=== PATIENT | female | born 1935 | race Caucasian/White ===

== ENCOUNTER 2016-05-26 10:31 | Inpatient (IN) | payer MEDICARE ==
[2016-05-26] VITALS (9 sets, daily range): BP systolic 155–202; BP diastolic 53–83; PULSE 75–85; RESP 10–18; O2SAT 96–99
[~2016-05-26] VITALS: Ht 165.1 cm; Wt 64.2 kg
[~2016-05-26 10:31] MED LIST: ASPI-973 PO; CALC-190 PO; CHOL100045 PO; Excedrin PO; LAMO200T2 PO; MULT-1018 PO; PANT40SU PO; PRE625 PO; VENL75CA95 PO
--- NOTE | 2016-05-26 10:47 | ED.REPORT ---
HPI-Trauma Minor / Fall Date of Service May 26, 2016 ED Provider: Riley Barry MD This is an 81 year old female with a history of GERD, bipolar disorder, depression presenting to the emergency department via EMS due to fall that occurred just prior to arrival. Pt states she fell out of bed and and reports headache and neck pain, but otherwise denies any injuries. Denies LOC. Pt lives alone, neighbor reports confusion and states, "she is not acting herself." Denies nausea, vomiting, dizziness, lightheadedness, abdominal pain, constipation, or diarrhea. En route blood sugar 194. A friend present in the room adds that pt had a fall one week ago and was evaluated at that time with negative CT head. Friend adds that she appears confused and weak which is abnormal from baseline, pt is normally highly functional. Nursing Notes Stated Complaint: GLF Chief Complaint: General Complaint Nursing Notes Reviewed: Yes Allergies: Coded Allergies: citalopram (Verified Allergy, Unknown, 05/26/16) paroxetine (Verified Allergy, Unknown, 05/26/16) ciprofloxacin (Verified Adverse Reaction, Mild, diarrhea, 05/26/16) lansoprazole (Verified Adverse Reaction, Mild, intolerance, 05/26/16) Scheduled Aspirin (Aspirin) 81 Mg Tablet 81 MG PO DAILY Calcium Carbonate/Vitamin D3 (Calcium 500 mg Chewable Tablet) 1 Each Tab.chew 3 EACH PO DAILY Cholecalciferol (Vitamin D3) (Vitamin D) 1,000 Unit Capsule 1,000 UNIT PO DAILY Estrogens Conjugated (Premarin) 0.625 Mg Tablet 0.625 MG PO DAILY Lamotrigine (Lamotrigine) 200 Mg Tablet 200 MG PO DAILY Multivitamin (Multi Vitamin Daily) 1 Each Tablet 1 EACH PO DAILY Pantoprazole DR (Pantoprazole DR) 40 Mg Tablet.dr 40 MG PO BID Venlafaxine ER (Venlafaxine ER) 75 Mg Cap.er.24h 75 MG PO BID Vitamin E (Dl,Tocopheryl Acet) (Vitamin E) 100 Unit Capsule Unknown Dose PO DAILY Scheduled PRN Aspirin/Acetaminophen/Caffeine (Extra Pain Relief Caplet) 250 Mg-250 Mg-65 Mg Tablet 1 EACH PO DIRECTED PRN PRN For Pain General Time Seen by MD: 10:46 Chief Complaint Fall Hx Obtained From: Patient Arrived By: Ambulance Onset Occurred: Just prior to arrival Symptom Duration: Since onset Severity: Current: Mild Pertinent Negative: Pt denies other symptoms Recent Healthcare: No recent doctor visit, No recent hospitalization Similar Sx Previous: No Risk Factors Head CT Imaging Patient Presents WITHOUT: Loss of Conciousness Ernie Coma Score > Age 5 Ernie Coma Score: 13 Past Medical History Past Medical History GERD Bipolar Disorder Major Depression HIatial Hernia Ambulatory Status Independent Review of Systems Constitutional: Denies: Chills, Fever Respiratory: Denies: Non-productive cough, Shortness of breath Musculoskeletal: Reports: Neck pain, Denies: Back pain, Extremity pain, Extremity swelling Neurologic: Reports: Confusion, Headache, Denies: Change LOC, Dizziness, Lightheaded Complete sys rev & neg: except as marked. Physical Exam Initial Vital Signs Vital Signs (First) Date Time Temp Pulse Resp B/P Pulse Ox O2 Delivery O2 Flow Rate FiO2 05/26/16 10:59 36.6 75 16 188/53 99 Room Air - Initial VS: Reviewed Head / Eyes: Atraumatic, Normocephalic, PERRL ENT: Mucous membranes moist, Conjunctiva normal, No scleral icterus Respiratory: Breath sounds normal, Clear to auscultation, No respiratory distress Cardiovascular: Regular rate & rhythm, Heart sounds normal, Intact distal pulses Abdomen / GI: Soft, Non-tender, No guarding, No rebound, No distention Extremities: Vascular intact, Neuro intact, No swelling, No tenderness Skin: Warm, Dry, No cyanosis Psychiatric: Mood/affect normal, Behavior normal, Normal thought content General/Constitutional: Awake, Alert Neck: Full range of motion Cervical tenderness Neurologic: No motor deficits, No sensory deficits, CN II - XII intact Slurred speech, GCS 13 Interpretation & Diagnostics BRAIN CT IMPRESSION: 1. Subacute versus chronic right globus pallidus lacunar infarct. 2. Chronic left globus pallidus lacunar infarct. 3. Mild, diffuse volume loss. 4. Severe periventricular and subcortical white matter chronic microvascular ischemic changes. 5. No intracranial hemorrhage. Dictated by: Dinorah Thomas MD, PhD on 05/26/2016 at 13:35 Approved by: Dinorah Thomas MD, PhD on 05/26/2016 at 13:[address] C-[address] IMPRESSION: No fracture. No acute osseous lesion. If symptoms and/or clinical suspicion for pathology persists, evaluation with MRI may be helpful for further assessment. Dictated by: Dinorah Thomas MD, PhD on 05/26/2016 at 13:59 Approved by: Dinorah Thomas MD, PhD on 05/26/2016 at 14:05 CT ABD PELVIS IMPRESSION: 1. No acute disease process. 2. Cholelithiasis. 3. Colonic diverticulosis without evidence of diverticulitis. 4. Atherosclerosis. 5. Moderate-sized hiatal hernia. Dictated by: Dinorah Thomas MD, PhD on 05/26/2016 at 13:50 Approved by: Dinorah Thomas MD, PhD on 05/26/2016 at 13:58 Lab Results Interpretation Result Diagram: 05/26/16 1110 05/26/16 1110 Test 05/26/16 11:10 05/26/16 12:07 White Blood Count 9.0th/mm3 (3.8-10.1) Red Blood Count 4.25mil/mm3 (3.90-5.20) Hemoglobin 13.0g/dL (12.0-15.6) Hematocrit 39.2% (35.0-46.0) Mean Corpuscular Volume 92.2fL (81-100) Mean Corpuscular Hemoglobin 30.6pg (27.0-35.0) Mean Corpuscular Hemoglobin Concent 33.2% (32.0-37.0) Red Cell Distribution Width 14.4% (12.3-15.4) Platelet Count 272bil/L (150-400) Neutrophils (%) (Auto) 72.9% (40-74) Lymphocytes (%) (Auto) 18.4% (14-46) Monocytes (%) (Auto) 6.2% (4-12) Eosinophils (%) (Auto) 2.0% (0-5) Basophils (%) (Auto) 0.2% (0-3) Prothrombin Time 10.5sec (8.1-12.5) Prothromb Time International Ratio 0.98ratio Sodium Level 140mEq/L (134-144) Potassium Level 4.0mEq/L (3.5-5.2) Chloride Level 102mEq/L (97-108) Carbon Dioxide Level 27mmol/L (18-29) Blood Urea Nitrogen 22mg/dL (8-27) Creatinine 0.62mg/dL (0.57-1.00) Estimat Glomerular Filtration Rate 132mL/min (>59) Glucose Level 95mg/dL (60-99) Calcium Level 8.4mg/dL (8.5-10.1) Magnesium Level 2.1mg/dL (1.6-2.6) Total Bilirubin 0.4mg/dL (0.0-1.2) Aspartate Amino Transf (AST/SGOT) 31U/L (0-50) Alanine Aminotransferase (ALT/SGPT) 19U/L (0-32) Alkaline Phosphatase 72U/L (25-165) Troponin T 0.010ug/L (0.0-0.011) Total Protein 6.4g/dL (6.4-8.4) Albumin 3.8g/dL (3.4-5.0) Hold Birch Top Tube Received (Received) Alcohol, Quantitative < 10mg/dL (0-10) Urine Color Straw (YELLOW) Urine Appearance Hazy (CLEAR,HAZY) Urine pH 6.5 (5.0-8.0) Urine Specific Marshall 1.015 (1.003-1.035) Urine Protein Negativemg/dL (NEG,TRACE) Urine Glucose (UA) Negativemg/dL (NEGATIVE) Urine Ketones Tracemg/dL (NEGATIVE) Urine Occult Blood Negative (NEGATIVE) Urine Nitrite Negative (NEGATIVE) Urine Bilirubin Negative (NEGATIVE) Urine Urobilinogen Normalmg/dL (NORMAL) Urine Leukocyte Esterase Negative (NEGATIVE) Urine RBC 0-2/hpf (0-2) Urine WBC 0-5/hpf (0-5) Urine Epithelial Cells Occasional/hpf (NONE-MOD) Urine Crystals None seen (NONE SEEN) Urine Bacteria None/hpf (NONE-FEW) Urine Hyaline Casts None/lpf (NONE) Urine Granular Casts None seen (NONE SEEN) Urine Waxy Casts None seen (NONE SEEN) Urine Red Blood Cell Casts None seen (NONE SEEN) Urine White Blood Cell Casts None seen (NONE SEEN) Urine Mucus None seen (None Seen) Urine Trichomonas None seen (NONE SEEN) Urine Yeast None (NONE SEEN) Urinalysis Comment None Urine Culture Reflexed Not indicated ECG Interpretation ECG Interpretation: NSR at a rate of [address] elevation Time: 11:36 Interpreted by: ED physician X-Ray Chest Interpretation Chest Xray Interpretation: IMPRESSION: No acute cardiopulmonary disease process. Dictated by: Dinorah Thomas MD, PhD on 05/26/2016 at 12:26 Approved by: Dinorah Thomas MD, PhD on 05/26/2016 at 12:26 Re-Eval/Medical Decision Med Decision/Clinical Course 81-year-old female history of depression and bipolar presenting with altered mental status. Patient was found by friends today altered. She was reportedly normal several days ago. Normally alert and interactive. She had a recent fall one week ago was taken outside hospital with normal CT brain per friend. On arrival GCS 13. She is very somnolent. CT brain shows subacute versus chronic globus pallidus infarct. Discussed with neurology Dr. Osullivan who recommends admission for MRI and stroke workup. Recommended starting aspirin which I gave. We will admit to hospital for CVA, Altered mental status. Re-Evaluation/Progress #1: Time of Eval: 12:34 Re-Evaluation/Progress Note: Discussed pt care with friend now present in the room, plan for admission Re-Evaluation/Progress #2: Time of Eval: 13:54 Consultation #1: Referral / Consult Name: Tomas Montgomery MD Consulted With: Neurology Call Returned at: 13:58 Cassandra Consultant: Agrees with eval, Agrees with plan Note: Recommends ASA and admission Consultation #2: Referral / Consult Name: Reuben Greene MD Consulted With: Hospitalist Call Returned at: 14:38 Cassandra Consultant: Accepts admit Counseled Regarding: Diagnosis, Lab results, Need for follow-up, Need for admission Discharge & Departure Impression: Primary Impression: CVA (cerebral vascular accident) CVA mechanism: unspecified Qualified Code: I63.9 - Cerebral infarction, unspecified Additional Impression: Altered mental status Altered mental status type: unspecified Qualified Code: R41.82 - Altered mental status, unspecified Disposition: ADMITTED TO HOSPITAL Discharge Condition All VS Reviewed: Yes Condition: Stable Referrals: Flako Amador MD (PCP) Crit Care Except Billable Proc Time Spent: 30-74 minutes Services Performed: Patient management by me, Time spent at bedside, Reviewing test results, Reviewing imaging, Discussing patient care, Documentation in record Scribe Attestation Portions of this note were transcribed by Faviola Sims. I, Dr. Barry personally performed the history, physical exam and medical decision-making; I reviewed and confirmed the accuracy of the information in the transcribed note. Signed by: eun Ferrell. 05/26/2016, 15:00. Riley Barry MD May 26, 2016 10:47 FAVIOLA SIMS May 26, 2016 10:58
[2016-05-26 11:20] LABS: BASOPHILS % (AUTO) 0.2 % (0-3); MONOCYTES % (AUTO) 6.2 % (4-12); Mean Corpuscular Hemoglobin 30.6 pg (27.0-35.0); Mean Corpuscular Volume 92.2 fL (81-100); NEUTROPHILS % (AUTO) 72.9 % (40-74); Platelet Count 272 bil/L (150-400)
[2016-05-26 11:45] LABS: TROPONIN T 0.01 ug/L (0.0-0.011)
[2016-05-26 11:56] LABS: Magnesium 2.1 mg/dL (1.6-2.6)
[2016-05-26 12:20] LABS: APPEARANCE,URINE HAZY (CLEAR,HAZY); COLOR,URINE STRAW (YELLOW); OCCULT BLOOD,URINE NEGATIVE (NEGATIVE); PH,URINE 6.5 (5.0-8.0); UROBILINOGEN,URINE NORMAL (NORMAL)
--- NOTE | 2016-05-26 12:54 | DRSVH ---
PROCEDURE: X-RAY CHEST ONE VIEW, PORTABLE ([id number]) INDICATIONS: weakness, multiple falls TECHNIQUE: One view of the chest was acquired. COMPARISON: None. FINDINGS: Surgical changes and devices: None. Lungs and pleura: No pleural effusions or pneumothorax. Lungs are clear. Mediastinum: Mediastinal contours appear normal. Heart size is normal. Bones and chest wall: No suspicious bony lesions. Overlying soft tissues appear unremarkable. IMPRESSION: No acute cardiopulmonary disease process. Dictated by: Dinorah Thomas MD, PhD on 05/26/2016 at 12:26 Approved by: Dinorah Thomas MD, PhD on 05/26/2016 at 12:26
--- NOTE | 2016-05-26 13:40 | DRSVH ---
PROCEDURE: CT BRAIN WITHOUT CONTRAST ([id number]) INDICATIONS: altered mental status ? trauma? TECHNIQUE: Noncontrast 4.5 mm thick angled axial sections acquired from the foramen magnum to the vertex, with c oronal reformats. COMPARISON: None. FINDINGS: Image quality: Excellent. CSF spaces: Basal cisterns are patent. No extra-axial fluid collections. The ventricles are symmet jose a in size and shape. Brain: No intracranial bleeds or masses. There is cerebral volume loss for age, with resultant vent ricular and sulcal prominence. There are severe periventricular and deep white matter chronic small vessel ischemic changes. Chronic lacunar infarct as well as left globus pallidus noted. Hypoattenuati ng lesion noted in the right globus pallidus may represent subacute or chronic infarct. There is intr acranial internal carotid artery and vertebral artery atherosclerosis. Skull and face: Calvarium and visualized facial bones appear intact, without suspicious lesions. Sinuses: Visualized sinuses and mastoids are clear. IMPRESSION: 1. Subacute versus chronic right globus pallidus lacunar infarct. 2. Chronic left globus pallidus lacunar infarct. 3. Mild, diffuse volume loss. 4. Severe periventricular and subcortical white matter chronic microvascular ischemic changes. 5. No intracranial hemorrhage. Dictated by: Dinorah Thomas MD, PhD on 05/26/2016 at 13:35 Approved by: Dinorah Thomas MD, PhD on 05/26/2016 at 13:39
--- NOTE | 2016-05-26 14:01 | DRSVH ---
PROCEDURE: CT ABDOMEN AND PELVIS WITH CONTRAST TRAUMA ([id number] [id number]) INDICATIONS: abd pain trauma TECHNIQUE: After the administration of intravenous contrast, 5 mm thick sections acquired from the diaphragms to the symphysis. 5 mm thick coronal and sagittal reformats were acquired. Optional 10-minute delayed imaging may be performed from the kidneys to the bladder. For radiation dose reduction, the followi ng was used: automated exposure control, adjustment of mA and/or kV according to patient size. COMPARISON: [facility], CT, ABD/PELVIS W/CON (PN), 01/12/2011, 16:46. FINDINGS: Image quality: Excellent. ABDOMEN: Lung bases: Lung bases are clear. Heart size is normal. No pericardial effusion. Inferior ribs ar e intact. No basal pleural effusions or pneumothorax. Solid organs: Liver and spleen are normal in size and enhancement, without lacerations. Gallbladder contains gallstones. Biliary system is non-dilated. Pancreas enhances normally, without transectio n. No adrenal hematomas. Both kidneys enhance normally, without hydronephrosis or lacerations. Peritoneum and bowel: Hiatal hernia is noted. No free fluid or air. Unenhanced bowel loops demonstr ate normal wall thickness and caliber. Scattered diverticuli noted in the colon without evidence of d iverticulitis. Nodes and vessels: No retroperitoneal or mesenteric adenopathy. Aorta and inferior vena cava are no rmal in size and enhancement. Scattered atherosclerotic calcifications noted in the abdominal and pel gabe vasculature. Miscellaneous: No ventral hernias. PELVIS: Genitourinary: Bladder wall thickness is normal. Miscellaneous: No inguinal hernias or adenopathy. Injection granuloma is noted in the right buttock. Bones: Pelvic ring and hip joints appear intact. No vertebral compression fractures. Multilevel deg enerative disc disease. Severe convex left lumbar spine scoliosis. IMPRESSION: 1. No acute disease process. 2. Cholelithiasis. 3. Colonic diverticulosis without evidence of diverticulitis. 4. Atherosclerosis. 5. Moderate-sized hiatal hernia. Dictated by: Dinorah Thomas MD, PhD on 05/26/2016 at 13:50 Approved by: Dinorah Thomas MD, PhD on 05/26/2016 at 13:58
--- NOTE | 2016-05-26 14:06 | DRSVH ---
PROCEDURE: CT CERVICAL SPINE WITHOUT CONTRAST ([id number]) INDICATIONS: trauma c-spine tenderness TECHNIQUE: Noncontrast 3 mm thick sections acquired from the skull base to the T4 level. Sagittal and coronal r eformats were then constructed. For radiation dose reduction, the following was used: automated exp osure control, adjustment of mA and/or kV according to patient size. COMPARISON: None. FINDINGS: Image quality: Excellent. Bones: No fractures or dislocations. Visualized superior ribs are intact. Multilevel degenerative d isc disease and facet arthropathy are noted. Soft tissues: Prevertebral soft tissues are normal in thickness. No paravertebral hematomas. No ap ical pneumothoraces. IMPRESSION: No fracture. No acute osseous lesion. If symptoms and/or clinical suspicion for patholog y persists, evaluation with MRI may be helpful for further assessment. Dictated by: Dinorah Thomas MD, PhD on 05/26/2016 at 13:59 Approved by: Dinorah Thomas MD, PhD on 05/26/2016 at 14:05
[2016-05-26] MEDS ORDERED: Alum-Mag Hydrox-Simeth 30 mL Suspension PO PRN (14:50)
[2016-05-26] MEDS ORDERED: Ondansetron 2 mg/mL 2 mL Inj IVPUSH PRN (14:50)
[2016-05-26] MEDS ORDERED: Labetalol 5 mg/mL 4 mL Inj IVPUSH PRN (14:55)
[2016-05-26] MEDS ORDERED: HYDROcodone-APAP 5-325 mg Tablet PO PRN (14:55)
[2016-05-26] MEDS ORDERED: Polyethylene Glycol (PEG) 17 Gm Powder PO PRN (14:55)
--- NOTE | 2016-05-26 15:17 | NUR ---
Evaluation completed. Please go to "Notes" then click on "Assessments and Notes" (bottom left corner of screen). Then select appropriate discipline tab on top of screen.
[2016-05-26 15:28] LABS: INR 0.98 ratio
[2016-05-26] MEDS ORDERED: [UNRECOGNIZED DRUG - CODE] PO (16:23)
[2016-05-26] MEDS ORDERED: CALC-952 PO (16:25)
[2016-05-26] MEDS ORDERED: PANT40TA3 PO (16:25)
[2016-05-26] MEDS ORDERED: PRE625 PO (16:25)
[2016-05-26] MEDS ORDERED: VITA100C22 PO (16:26)
--- NOTE | 2016-05-26 17:17 | NUR ---
Admit nurse note Partial admission assessment completed in ER based on pt. recall and PCP H&P. PT. is crying, saying she misses her who recently . [employer] contacted to visit with pt. per pt request. Primary RN states she notified DPOA son Lacho. Allergy sticker placed by primary RN and fall precautions initiated upon arrival to unit. Report given to Pat Dowling.
--- NOTE | 2016-05-26 17:20 | NUR ---
Admit Pt comes from ER via bed. IV Left AC. Brief on incontinent. Left sides slight weakness. Pt c/o right eye vision changes X 2 days, neck pain, and bilateral big toe nail removal previously. Pt fatigued but alert and oriented X 4. Slow to respond and at times states the incorrect answers then the correct ones. Mumbles most times as well. Left arm drift and unable to extend straight out front as her right arm is able too. Gnosticist friends at bedside able to provide family phone numbers which were written on board. If pt is in need of sitter Javid has states that she will come in and to call her at any time! Care continues.
--- NOTE | 2016-05-26 17:58 | PCM.HPMED ---
Subjective Date of Service May 26, 2016 Primary Provider: Admitting Physician: Reuben Greene MD Primary Care Physician: Flako Amador MD Attending Physician: Reuben Greene MD Chief Complaint: Altered level of consciousness History of Present Illness: 81 year old female with a history of GERD, bipolar disorder, depression presenting to the emergency department via EMS due to fall that occurred just prior to arrival. Pt states she fell out of bed and and reports headache and neck pain, but otherwise denies any injuries. Denies LOC. Pt lives alone, neighbor reports confusion and states, "she is not acting herself." Denies nausea, vomiting, dizziness, lightheadedness, abdominal pain, constipation, or diarrhea. En route blood sugar 194. A friend present in the room adds that pt had a fall one week ago and was evaluated at that time with negative CT head. Friend adds that she appears confused and weak which is abnormal from baseline, pt is normally highly functional. Patient is improving but still probably not mentating perfectly normally. Her neighbor is present when I am interviewing her and states that she speaking basically normally for herself however seems to me that she has problems maintaining attention with me some difficulty following even simple commands. She fell about 2 weeks ago and a broke a closet door hitting her right eye the bruise is almost resolved, she fell out of bed this morning and used her life alert to call 911. She is unable to tell me really that there was anything the matter prior to this. Her neighbor tells me that she had her 's picture out he passed in December 2015 and she may be particularly depressed at this time. Review of Systems: When queried the patient states "no" but maintaining her attention for the series of questions is challenging at best Gen.: No fevers chills weight loss weight gain Eyes: no visual disturbances or blurring vision HEENT: No nose/throat drainage, no pain in ears or throat, no hearing loss Lymph: No lymph nodes noted Cardiac: No chest pain, orthopnea, PND, palpitations , pedal edema or dyspnea on exertion Pulmonary: no cough, wheezing or bringing up of sputum GI: No anorexia nausea vomiting blood or black in the stool : no dysuria hematuria urinary frequency or decrease in urine output Musculoskeletal: Joint swelling no joint pain no new muscle aches or back pain Neuro: No syncope, seizures no loss of consciousness no new focal weakness, numbness or tingling Psychiatric: New new anxiety insomnia or depression Endocrine: No new heat or cold intolerances polyuria or polydipsia Hematology: No lymphadenopathy or easy bleeding or bruising noted skin: No new rashes, stasis dermatitis Allergies Coded Allergies: citalopram (Verified Allergy, Unknown, 05/26/16) paroxetine (Verified Allergy, Unknown, 05/26/16) ciprofloxacin (Verified Adverse Reaction, Mild, diarrhea, 05/26/16) lansoprazole (Verified Adverse Reaction, Mild, intolerance, 05/26/16) Home Medications Scheduled Aspirin (Aspirin) 81 Mg Tablet 81 MG PO DAILY Calcium Carb&Cit/Mag12/Vit D3 (Calcium 500 mg Tablet) 1 Each Tablet 3 EACH PO DAILY Cholecalciferol (Vitamin D3) (Vitamin D) 1,000 Unit Capsule 1,000 UNIT PO DAILY Estrogens Conj-Expunged Drug, Do Not Renew! (Premarin-Expunged Drug, Do Not Renew!) 0.625 Mg Tab 0.625 MG PO AM Lamotrigine (Lamotrigine) 200 Mg Tablet 200 MG PO DAILY Multivitamin (Multi Vitamin Daily) 1 Each Tablet 1 EACH PO DAILY Pantoprazole-Expunged Drug, Do Not Renew! (Protonix-Expunged Drug, Do Not Renew! ) 40 Mg/Blist Pack Suspdr.pkt 40 MG PO DAILY Venlafaxine ER (Venlafaxine ER) 75 Mg Cap.er.24h 75 MG PO BID Scheduled PRN ([Excedrin]) 1 TAB PO DAILY PRN PRN For Pain PMH GERD Bipolar Disorder Major Depression HIatial Hernia PAST SURGICAL HISTORY: 1. Appendectomy. 2. Hysterectomy. 3. Thyroidectomy. 4. Parathyroidectomy. 5. Previous cystoscopy. 6. Left ureteral stent placement. SOCIAL HISTORY: She is to , Geraldo who December 2015. Nonsmoker, non-alcohol consumer. Ambulatory Status Independent Family history no known history of early heart disease or cancer Social History Hx Alcohol Use: No Hx Substance Use: No Hx Tobacco Use: No Smoking Status: Never Smoker Exam Vital Signs Vital Sign - Last Date Time Temp Pulse Resp B/P Pulse Ox O2 Delivery O2 Flow Rate FiO2 05/26/16 16:28 77 16 175/76 93 Room Air 05/26/16 10:59 36.6 Exam Gen.- A+ O 2-3, no apparent distress. Lying in bed intermittently following commands. Reportedly doing much better than she was in the emergency room or even on transfer to the floor. Eyes- open conjunctiva clear, pupils equal nonicteric. She has a right favoring gaze, but extraocular muscles seem to be mostly intact Mouth- oral mucosa moist, no exudate ENT- ears normal, nose normal Neck- supple/trach midline CVS- RRR no murmur or gallop Lungs- CTA GI- NABS/NT soft Musc- moving 4 no obvious deformity Neuro- cranial nerves II through XII intact to gross examination, patient has facial asymmetry but cranial nerves seem to be overall intact, her speech is quiet but her neighbor tells me this is chronic and it also seems a bit slurred , she has difficulty moving her left arm but it is not clear at the chronicity and she is also having difficulty doing heel pendleton but that is bilaterally symmetric. She has 5 out of 5 strength both upper extremities, 4 out of 5 strength in her left leg versus 5 out of 5 in the right Skin- warm and dry, no rashes/lesions/wounds noted Psych-seems withdrawn, sullen, needs constant stimulation to maintain attention and redirection, Lab and Diagnostics Labs Normal LFTs, normal troponin, urine clear Result Diagram: 05/26/16 1110 05/26/16 1110 X-Rays, CTs and MRIs CT brain 1. Subacute versus chronic right globus pallidus lacunar infarct. 2. Chronic left globus pallidus lacunar infarct. 3. Mild, diffuse volume loss. 4. Severe periventricular and subcortical white matter chronic microvascular ischemic changes. 5. No intracranial hemorrhage. Dictated by: Dinorah Thomas MD, PhD on 05/26/2016 at 13:35 CT abdomen and pelvis 1. No acute disease process. 2. Cholelithiasis. 3. Colonic diverticulosis without evidence of diverticulitis. 4. Atherosclerosis. 5. Moderate-sized hiatal hernia. Dictated by: Dinorah Thomas MD, PhD on 05/26/2016 at 13:50 CT C-spine No fracture. No acute osseous lesion. If symptoms and/or clinical suspicion for pathology persists, evaluation with MRI may be helpful for further assessment. Normal CXR 12-lead ECG . Sinus rhythm 72 QRS 472ms . Left anterior fascicular block . Low voltage, precordial leads . Left ventricular hypertrophy . Anterior Q waves, possibly due to LVH . No previous ECG available for comparison Assessment & Plan 81-year-old female lives alone came in with altered level of consciousness, at this point in time it is pretty clear she will need placement unless she recovers. Her children live in [place] and her neighbors do look after her one is at the bedside and one across the way is a nurse. He has a good supportive environment. 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 Her neighbor left me the impression that she was pretty near to baseline however I find that hard to believe. Reuben Greene MD May 26, 2016 17:57
--- NOTE | 2016-05-26 18:27 | NUR ---
spiritual care: nurse referral conversational/caring visit. friend from [facility] [place] at bedside, supportive. no family near. Pt grew tearful as she talked of 's (in past year) and expressed overwhelm at medical events. awaiting mri and more medical news.
[2016-05-26] MEDS ORDERED: ACETAMINOPHEN PO PRN (19:05)
[2016-05-26] MEDS ORDERED: CAFFEINE PO PRN (19:05)
[2016-05-26] MEDS ORDERED: ASPIRIN PO PRN (19:05)
[2016-05-26] MEDS ORDERED: [UNRECOGNIZED DRUG - OTHER] PO PRN (19:05)
--- NOTE | 2016-05-26 20:14 | DRSVH ---
PROCEDURE: MRI BRAIN WITHOUT CONTRAST ([id number]) INDICATIONS: CVA Uncertain Acuity TECHNIQUE: Non-contrast axial T1 spin echo, axial T2 fast spin echo, sagittal and axial FLAIR, coronal T2 fast s pin echo, axial gradient echo, axial diffusion and ADC through the brain. COMPARISON: None. FINDINGS: Image quality: Excellent. CSF spaces: Ventricles appear symmetric in shape. Fluid spaces are mildly enlarged from atrophic pili nge. Basal cisterns are patent. No extra-axial fluid collections. Brain: No intracranial bleeds or mass effects. There is an acute disc subacute infarct in the region of the right basal ganglia. There is an old lacunar infarct in the left basal ganglia. There is cere bral volume loss for age. There are moderate periventricular and deep white matter chronic small ves serjio ischemic changes. Brainstem appears normal. Diffusion-weighted images show no acute ischemic in sults. No chronic ischemic insults. Normal intravascular flow voids are present. Skull and face: Calvarial bone marrow is normal in signal. Orbits are normal. Sinuses: Sinuses and mastoids are clear. IMPRESSION: Acute to subacute ischemic infarcts involving the right basal ganglia area. Old lacune in the left. Moderate microvascular ischemic change from aging and mild atrophy. Dictated by: Jose Ramon Nogueira M.D. on 05/26/2016 at 20:10 Approved by: Jose Ramon Nogueira M.D. on 05/26/2016 at 20:13
[2016-05-26] MEDS: Venlafaxine XR 75 mg ER24 Capsule PO SCH (20:30)
[2016-05-26] MEDS: Pantoprazole 40 mg ER24 Tablet PO SCH ×2 (20:30→22:04)
[2016-05-26] MEDS: 0.9% Sodium Chloride 1,000 ML IV SCH (22:04)
[2016-05-27] MEDS: 0.9% Sodium Chloride 1,000 ML IV SCH ×2 (03:25→15:55)
[2016-05-27 05:08] VITALS: BP 189/87; PULSE 83; RESP 16; O2SAT 96
--- NOTE | 2016-05-27 05:59 | NUR ---
activity pt is slow to respond to questions but did answer all questions appropriately this shift. able to hold both arms out but left arm drifts towards center of chest. L foot plantar/dorsiflexion is weaker then R. pt makes some depressive statements. when nurse asked her to smile she said "that's hard because there's nothing to smile about". pt passive. when not being interactive with she has just slept or laid with very little movement. staff doing q2 turns and skin checks. pt incontinent and wearing a brief. she has not been telling staff when she has to go to the bathroom or asking to get up at all. will continue to monitor.
[2016-05-27 08:00] VITALS: PULSE 92
[2016-05-27] MEDS: Calcium Carbonate (Oyster Shell) 500 mg Tablet PO SCH ×3 (08:00→17:30)
[2016-05-27] MEDS ORDERED: Non-Formulary Medication (Cholecalciferol (Vitamin D3) (Vitamin D) 1,000 UNIT) PO SCH (08:30)
[2016-05-27] MEDS ORDERED: lamoTRIgine 100 mg Tablet PO SCH (08:30)
[2016-05-27] MEDS ORDERED: Non-Formulary Medication (Multivitamin (Multi Vitamin Daily) 1 EACH) PO SCH (08:30)
--- NOTE | 2016-05-27 08:46 | CONS ---
[address] [address] CONSULTATION REPORT PATIENT: KEERTHI VILLAREAL : 1935 MR#: [id number] ADMIT: 05/26/2016 JOB ID: [id number] DATE OF SERVICE: 05/27/2016 CHIEF COMPLAINT: Change in mental status followed by a fall. REQUESTING PROVIDER: Dr. Riley Barry. HISTORY OF PRESENTING ILLNESS: The patient is an 81-year-old woman with a history of gastroesophageal reflux disease, bipolar disorder, and depression who reportedly was noted to have a change of mental status and a fall that occurred prior to arrival at the emergency department. She reports that she fell out of bed, and reported headache and neck pain. Otherwise denied any injuries. She lives alone and a neighbor reported confusion and noted that she did not appear to be in her normal mental status. Blood sugar was noted to be 134. Reportedly a friend present in the room added that the patient had a fall one week ago that was evaluated at the time with a negative head CT. The friends added that the patient appeared confused and weak, abnormal from baseline where the patient is normally highly functional. MEDICATIONS AT HOME: Include: 1. Aspirin 81 mg daily. 2. Calcium carbonate/vitamin-D3. 3. Estrogen conjugated. 4. Lamotrigine 200 mg daily. 5. Multivitamin. 6. Pantoprazole. 7. Venlafaxine. 8. Vitamin E. ALLERGIES: To CITALOPRAM, PAROXETINE, CIPROFLOXACIN, and LANSOPRAZOLE. PAST MEDICAL HISTORY: Gastroesophageal reflux disease, bipolar disorder, depression, hiatal hernia PAST SURGICAL HISTORY: Appendectomy, hysterectomy, thyroidectomy, parathyroidectomy, cystoscopy, left ureteral stent placement The patient was evaluated in the emergency department and a CT of the head was performed. It demonstrated a subacute versus chronic right globus pallidus lacunar infarct, chronic left globus pallidus lacunar infarct, mild diffuse volume loss, severe periventricular and subcortical white matter chronic microvascular ischemic changes with no intracranial hemorrhage. A CT cervical spine demonstrated no fracture. No acute osseous lesion and a CT of the abdomen and pelvis demonstrated no acute disease process, cholelithiasis, colonic diverticulosis without evidence of diverticulitis, atherosclerosis and a moderate sized hiatal hernia. WBC of 9.0, hemoglobin 13.0, hematocrit 39.2 with platelets of 272. Sodium 140, potassium was 4.0, chloride 102, bicarbonate 27, BUN was 22, creatinine was 0.62 and glucose of 95. UA was performed as well and was straw hazy with trace ketones, occasional urine epithelial cells, otherwise unremarkable. Chest x-ray: No acute cardiopulmonary disease process was noted. EKG demonstrated normal sinus rhythm at a rate of [address] elevation. Friends noted that the patient was noted to have altered mental status. Last seen normal several days ago. Normally alert and interactive. Reportedly had a fall one week ago. Was taken to an outside hospital with a normal CT of the head performed. On arrival, GCS was 13. She was noted to be very somnolent. She was admitted to the hospital. I reviewed her magnetic resonance imaging study of the brain which demonstrated an acute to subacute ischemic infarcts involving the right basal ganglia area and an old lacune in the left basal ganglia area, moderate microvascular ischemic changes likely from aging and mild atrophy. Today the patient was able to follow commands. However, did appear lethargic to me. No reported seizure activity. Her speech also appears slurred and there is a mild degree of difficulty moving the left arm and left leg which appeared mildly weak. I reviewed her EKG which demonstrated a left anterior fascicular block, low voltage in the precordial leads, left ventricular hypertrophy, anterior Q-waves possibly due to LVH. Reportedly her children live in [place] and her neighbors look after her. She has a nurse that lives in the area. This event occurred despite being on aspirin. It is unclear her degree of compliance. REVIEW OF SYSTEMS: A complete review of systems was performed and was remarkable for above-noted. PHYSICAL EXAMINATION: Vital signs: Temperature 37.0, pulse of 83, respiratory rate of 16, blood pressure 189/87, pulse oximetry 96% on room air. General: She is awake, alert and oriented x2. She did not know the date. She did follow commands. Her speech was dysarthric. However, there was no aphasia. Head: Normocephalic, atraumatic. Neck: Supple. No carotid bruits were auscultated. Negative Kernig. Negative Brudzinski. Chest clear to auscultation. Heart: Regular rate and rhythm. Abdomen: Soft, nondistended, nontender. Extremities: No cyanosis, clubbing or edema. NEUROLOGIC EXAMINATION: Mental status: She is awake, alert and oriented x2. She did not know the date. Her speech did appear to be dysarthric. However, there was no aphasia. Cranial nerves: Pupils equal, round and react to light. Extraocular movements did appear smooth and conjugate. However, there is a right gaze deviation noted. She blinks to threat bilaterally and there was mild flattening of the left nasolabial fold. Facial sensation was intact to light touch bilaterally. Auditory sensation was intact to finger rub bilaterally. Tongue was midline. Sternocleidomastoids and trapezii were 5/5 bilaterally. She did appear intermittently lethargic throughout the examination. Motor: Left upper extremity 5-/5. Left lower extremity 5/5. Sensation intact to light touch and temperature. Coordination was attempted. However, the patient appeared confused during this process and was unable to complete finger to nose bilaterally due to confusion and intermittent lethargy. Deep tendon reflexes were 1+ throughout, trace at the Achilles bilaterally. Plantars were silent bilaterally. Gait was deferred. IMPRESSION: 1. Cerebrovascular accident. 2. Right globus pallidus lacunar infarct. Likely secondary to patient's underlying stroke risk factors including hypertension. I do suspect underlying hyperlipidemia. She would benefit from a lipid risk profile if this has not already been ordered. I do not see it back yet today. However, it may have already been ordered. Her hemoglobin A1c was 5.6. I recommend a full stroke protocol. Plavix 75 mg daily. I do recommend a CTA of head and neck to be performed and an echocardiogram. I do recommend completion of stroke workup. I do recommend optimization of stroke risk factors. Thank you, again, for allowing me to participate in the care of your patient. Please feel free to contact me with any questions or concerns or Dr. Riley Barry. NIH stroke scale of 5, one for missing the date, one for facial asymmetry, one for a mild degree of drift in the left upper extremity, one for a mild degree of drift in the left lower extremity and one for a mild degree of dysarthria. ADDITIONAL INFORMATION: I came by and examined the patient again later today, and she was able to correctly state the date. She does appear lethargic, however, does not have classic features of akinetic mutism. There has been a mild degree of waxing and waning of her symptoms, and she was unable to pass her swallow evaluation today. There is consideration for possible tube feeding tomorrow. I did also review her imaging studies with her of the magnetic resonance angiogram of her brain and neck that demonstrated no acute intracranial disease process other than the evolving subacute right basal ganglia/internal capsule/best radiata infarcts, no intracranial hemorrhage, high-grade atherosclerotic stenosis involving the supraclinoid segments of the internal carotid arteries bilaterally and at the junction of the petrous and cavernous segments of the left internal carotid artery, multifocal high-grade atherosclerotic stenosis involving the intracranial right vertebral artery and basilar artery, high-grade greater than 70% stenosis at the origin of the right internal carotid artery, and severe high-grade stenosis of the origin of the left internal carotid artery. The left vertebral artery appears widely patent. In light of these findings, I do recommend an evaluation by Vascular Surgery for possible carotid endarterectomy versus stenting at the discretion of the vascular surgeon within the next two weeks. I do also recommend that the patient be placed on dual antiplatelet therapy for three months and then continued just on aspirin after three months. These recommendations are derived from the SAMMPRIS trial regarding intracranial stenosis that is symptomatic. However, in her case, I do suspect that the high-grade stenosis greater than 70% in the right internal carotid artery may be the etiology of her cerebrovascular accident of the right basal ganglia/internal capsule/best radiata infarcts. Other options for treatment given her cognition and apparent lethargy include amantadine and possibly even carbidopa/levodopa, although the patient does not have any tremor at this time. Thank you, again, for allowing me to participate in the care of your patient, Dr. Barry. I also contacted Dr. Amaya regarding the results of the CTA and recommendations for Vascular Surgery input. I recommend continuing stroke protocol, continue dual antiplatelet therapy. Addenda added by DIANA 05/30/16 at 8:43am MTDD
[2016-05-27] MEDS: Venlafaxine XR 75 mg ER24 Capsule PO SCH (09:09)
[2016-05-27] MEDS: Pantoprazole 20 mg ER24 Tablet PO SCH ×2 (09:09→20:03)
--- NOTE | 2016-05-27 09:20 | NUR ---
CT Pt leaves to CT. SL for procedure.
--- NOTE | 2016-05-27 09:30 | NUR ---
Anticoags on hold Per MD and Pharmacy Anticoagulants on hold until further notice and clarification.
--- NOTE | 2016-05-27 10:51 | PCM.PNMED ---
Subjective Date of Service May 27, 2016 Subjective Patient looked lethargic, however, follow some simple commands Denied headache, dizziness, chest pain, palpitation Patient was found to have basal ganglia ischemic stroke on MRI Blood pressure has been trended 150 to 190s Await further eval for acute stroke Exam Vital Signs Vital Sign - Last Date Time Temp Pulse Resp B/P Pulse Ox O2 Delivery O2 Flow Rate FiO2 05/27/16 08:00 92 05/27/16 05:08 37.0 16 189/87 96 Room Air Intake and Output 05/26/16 05/26/16 05/27/16 Cumulative From/Thru 15:00 23:00 07:00 05/26/16 10:59 - 05/27/16 05:08 Intake Total 1000 ml 0 ml 1000 ml Balance 1000 ml 0 ml 1000 ml Intake Oral 0 ml 0 ml IV Total 1000 ml 1000 ml # Voids 3 3 Exam Elderly, female, lethargic no JVD, MMM, no LAD RRR, nl s1, s2 no mrg CTAB, no w,c S,ND,NT,normoactive BS+ warm, no edema, pulses 2/2 neuro:mildly asymmetric face, no tongue deviation, PERRLA, EOMI motor strength, unable to assess given MS sensory intact to dull touch mumbling, no slurred speech, answer some questions IVs and Medications Medications Reviewed: Medications were reviewed in detail Lab and Diagnostics Result Diagram: 05/26/16 1110 05/26/16 1110 X-Rays, CTs and MRIs CT brain 1. Subacute versus chronic right globus pallidus lacunar infarct. 2. Chronic left globus pallidus lacunar infarct. 3. Mild, diffuse volume loss. 4. Severe periventricular and subcortical white matter chronic microvascular ischemic changes. 5. No intracranial hemorrhage. Dictated by: Dinorah Thomas MD, PhD on 05/26/2016 at 13:35 CT abdomen and pelvis 1. No acute disease process. 2. Cholelithiasis. 3. Colonic diverticulosis without evidence of diverticulitis. 4. Atherosclerosis. 5. Moderate-sized hiatal hernia. Dictated by: Dinorah Thomas MD, PhD on 05/26/2016 at 13:50 CT C-spine No fracture. No acute osseous lesion. If symptoms and/or clinical suspicion for pathology persists, evaluation with MRI may be helpful for further assessment. Normal CXR 12-lead ECG . Sinus rhythm 72 QRS 472ms . Left anterior fascicular block . Low voltage, precordial leads . Left ventricular hypertrophy . Anterior Q waves, possibly due to LVH . No previous ECG available for comparison Assessment & Plan 81-year-old female lives alone came in with altered level of consciousness, acute, active Acute encephalopathy in the setting of acute to subacute ischemic stroke, POA, CTH negative. MRI showed nvolving the right basal ganglia area, Old lacune in the left. -appreciate input, -permissive HTN, control with BB only SBP>220 or DBP>120 -awaits PT, OT, S/S eval -continue plavix, lipitor once pt is cleared for oral intake -reassess MS with holding meds for mood disorder #hypertensive, POA, [id number], will allow permissive HTN, control with labetalol prn as above chronic, stable, GERD, will continue PPI bid Bipolar Disorder, Major Depression, will hold home [employer] meds, dvt ppx: LMWH Full Code diet: per s/s eval dispo: likely 1-2more days given acute stroke, Time spent 35 minutes Huey Amaya MD May 27, 2016 10:51
[2016-05-27 11:07] VITALS: BP 188/80; PULSE 78; RESP 21; O2SAT 95
--- NOTE | 2016-05-27 14:39 | NUR ---
NUTRITION ASSESSMENT Assess: 81 yo F w/ CVA and AMS. Pt on stimulation diet per ST. PMHx: GERD, Bipolar, Depression, Hiatal hernia, Parathyroidectomy, Thyroidectomy. LABS: Reviewed, Ca 8.4 MEDICATIONS: Reviewed. Vit D3, MVI DIET: Stimulation, PO refused x1 meal GI symptoms/stool: No BM recorded Skin integrity: No issues noted, Bhavesh: 14 ANTHROPOMETRICS: Current Wt: 63.7 kg BMI: 24.1 kg/b7Kpcsq Wt: 63.7 kg IBW: 54.5 kgRecent wt changes: None noted ESTIMATED NEEDS: Calories: 1433-4031 kcal/d (25-30 kcal/kg/d) Protein: 65-95 g/d (11.5 g/kg/d) NUTRITION DIAGNOSIS: 1) Chewing/swallowing difficulty related to CVA as evidenced by mentation and need for stimulation diet. INTERVENTION: 1) Will monitor for diet advancement and add supplements as needed. MONITOR/EVALUATE: Diet adv/nick, Wt, Labs, Nutrition status, POC. Will follow per moderate nutrition risk guidelines.
[2016-05-27 15:28] VITALS: BP 174/81; PULSE 79; RESP 20; O2SAT 97
--- NOTE | 2016-05-27 15:44 | DRSVH ---
PROCEDURE: CT ANGIO HEAD AND NECK (P) INDICATIONS: Stroke TECHNIQUE: Pre-contrast 4.5 mm thick sections acquired from the foramen magnum to the vertex. After the adminis tration of intravenous contrast, 1 mm thick sections acquired from the aortic arch through the [place] of [place]. Post-contrast 4.5 mm thick sections then re-acquired from the foramen magnum to the vert ex. 3-dimensional qtsvqcu-jcevehfvj-pwvrdptwfp (MIP) and/or volume rendering reformats were acquired of the central intracranial vasculature and neck separately. For radiation dose reduction, the foll owing was used: automated exposure control, adjustment of mA and/or kV according to patient size. COMPARISON: [facility], MR, MR BRAIN WO CON, 05/26/2016, 18:12. [facility], CT, CT BRAIN WO CON, 05/26/2016, 13:18. FINDINGS: Image quality: Excellent. BRAIN: CSF spaces: Ventricles are normal in shape. Diffuse prominence of CSF space noted. Basal cisterns a re patent. No extra-axial fluid collections. Brain: No midline shift. No intracranial bleeds or masses. Hypodensities involving the right basal ganglia, right internal capsule and right best radiata patible subacute infarcts do not appear cent rally changed in size or distribution compared to prior MRI. 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 Moderate periventricular and subcortical chronic microvascu lar ischemic changes are noted. Skull and face: Calvarium and facial bones appear intact, without suspicious lesions. Orbits appear normal. Sinuses: Sinuses and mastoids are clear. HEAD CT ANGIOGRAPHY: Anterior circulation: Intracranial internal carotid arteries are normal in flow. Atherosclerotic gloria cifications noted in the cavernous and supraclinoid segments of the in internal carotid arteries bila terally. Atherosclerotic disease causes high grade stenosis of the supraclinoid segments of internal carotid arteries bilaterally and a focal high-grade stenosis at the junction of the petrous and julieta nous segments of the left internal carotid artery. The flow within the paired anterior cerebral arter ies is normal and symmetric. The flow within the middle cerebral arteries is normal and symmetric. The anterior communicating artery is seen. No aneurysms are seen. Posterior circulation: Scattered soft and calcified atherosclerotic plaque noted in right vertebral a rtery which causes multifocal high-grade stenoses. Scattered soft atherosclerotic plaque noted in the basilar artery which causes multifocal high-grade stenoses. Patient is left vertebral artery dominan t. Left vertebral artery appears widely patent. Flow within the posterior cerebral arteries is normal and symmetric. No aneurysms are seen. There is normal contrast opacification of the dural sinuses. NECK CT ANGIOGRAPHY: Carotid system: The great vessels demonstrate a conventional anatomy as they arise from the aortic a rc. The origins of the common carotid arteries appear patent. The common carotid arteries demonstr ate normal caliber and courses. Calcified atherosclerotic plaque noted in the origins of the internal carotid arteries bilaterally. Atherosclerotic plaque causes high grade, greater than 70% stenosis of the origin of the right internal carotid. Atherosclerotic plaque is high-grade, greater than 90% vee nosis of the origin of the left internal artery. Posterior circulation: The origins of the vertebral arteries both appear widely patent. The more lawrence perior extracranial portions of both vertebral arteries also demonstrate normal courses and calibers. They join to form a normal appearing basilar artery. Soft tissues: Visualized neck soft tissues demonstrate no suspicious abnormalities. Bones: No suspicious bony lesions. Cervical spine degenerative disc disease and facet arthropathy ar e noted. Visualized cervical spine appears normally aligned. IMPRESSION: 1. No acute intracranial disease process. 2. Evolving subacute right basal ganglia/internal capsule/best radiata infarcts. 3. No intracranial hemorrhage. 4. High grade atherosclerotic stenosis involving the supraclinoid segments of the internal carotid ar teries bilaterally and at the junction of the petrous and cavernous segments of the left internal car otid artery. 5. Multifocal, high-grade atherosclerotic stenosis involving the intracranial right vertebral artery and the basilar artery. 6. High-grade, greater than 70% stenosis of the origin of the right internal carotid artery. Severe high-grade chondromalacia and stenosis of the origin of the left internal carotid artery. 7. Left vertebral artery appears widely patent. Dictated by: Dinorah Thomas MD, PhD on 05/27/2016 at 15:21 Approved by: Dinorah Thomas MD, PhD on 05/27/2016 at 15:35
--- NOTE | 2016-05-27 16:33 | NUR ---
spiritual care: follow up Visited briefly with pt who needed to have a test done. Blessed her. Spiritual care will continue to follow as needed.
--- NOTE | 2016-05-27 18:03 | DRSVH ---
[facility] [address] [place] [address] Echocardiogram Report Name: KEERTHI VILLAREAL FStudy Date: 05/27/2016 Height: 64 in Hospital Exam Location: [facility] Weight: 140 lb Gender: Female BSA: 1.7 m2 : 1935 Age: 81 yrs BP: 189/87 mmHg Reason For Study: CVA Ordering Physician: HOSPITALIST SHASTAerformed By: Jordon Vanegas Referring Physician: Annamaria SALCEDO Interpretation Summary The left ventricle is normal in size. Left ventricular systolic function is normal without focal wall motion abnormalities. The ejection fraction is estimated to be 60-65%. Assessment of diastolic parameters indicates a relaxation abnormality of the left ventricle, consistent with normal filling pressures. The right ventricle is normal in size and function. The right ventricular systolic pressure is estimated at 35 mmHg assuming a right atrial pressure of 3 mm Hg. The left atrium is mildly dilated. Right atrial size is normal. There is no significant valvular heart disease. The aortic root is normal size. There is no obvious cardiac source of embolus noted on this transthoracic echocardiogram. Follow-up with a HOLLY is suggested if cardiac source is still suspected. Procedure: A two-dimensional transthoracic echocardiogram with color flow and Doppler was performed. The study quality was technically good. There is no prior echocardiogram noted for this patient. The patient was in normal sinus rhythm during the exam. Left Ventricle: The left ventricle is normal in size. There is normal left ventricular wall thickness. Proximal septal thickening is noted. Left ventricular systolic function is normal without focal wall motion abnormalities. The ejection fraction is estimated to be 60-65%. Assessment of diastolic parameters indicates a relaxation abnormality of the left ventricle, consistent with normal filling pressures. Right Ventricle: The right ventricle is normal in size and function. Atria: The left atrium is mildly dilated. Right atrial size is normal. The interatrial septum is intact with no evidence for an atrial septal defect. Mitral Valve: The mitral valve is normal in structure and function. There is trace mitral regurgitation. Aortic Valve: The aortic valve is normal in structure and function. The aortic valve is trileaflet. The aortic valve opens well. No aortic regurgitation is present. Tricuspid Valve: The tricuspid valve is normal in structure and function. There is mild tricuspid regurgitation. The right ventricular systolic pressure is estimated at 35 mmHg assuming a right atrial pressure of 3 mm Hg. Pulmonic Valve: The pulmonic valve is normal in structure and function. There is trace pulmonic regurgitation. There is no significant valvular heart disease. Great Vessels: The aortic root is normal size. The dimensions of the ascending aorta are normal. The pulmonary artery is normal size. The IVC is of normal diameter and collapses greater than 50% with a sniff. This suggests a low right atrial pressure of 3 mm Hg. Pericardium/ Pleura There is no pericardial effusion. There is no pleural effusion. MMode/2D Measurements & Calculations LVIDd: 4.6 cm RA long axis LVOT diam: 1.9 cm LVIDs: 2.9 cm LA A2 area: 20.5 cm AoV Opening FS: 37.3 % LA A4 area: 17.0 cm RA area EPSS: 0.27 cm LA length (vol) Ao root diam IVSd: 0.86 cm : 15.7 cm LVPWd: 0.73 cm LA vol: 58.5 ml RA vol Aortic Jxn: 2.5 cm LA vol index : 42.9 ml asc Aorta Diam RA : 25.5 mm2 Ao Arch Diam (Prox IVC diam: 1.1 cm Trans): 2.5 cm LV berrios. diameter/BSA LV sys. diameter/BSA (cm/m^2): 2.8 (cm/m^2): 1.7 Doppler Measurements & Calculations Ao V2 max MV E max eleazar MV E/A: 0.78 TR max eleazar : 162.2 cm/sec : 90.3 cm/sec Med Peak E' Eleazar : 283.3 cm/sec Ao max P.5 mmHg MV A max eleazar TR max PG Ao mean P.6 mmHg : 116.3 cm/sec E/E' med: 14.9 : 32.1 mmHg LVOT Max Eleazar Pulm A Revs Dur PA V2 max : 121.1 cm/sec : 109.3 cm/sec MV A dur PA mean PG ALYSHA(I,D): 2.3 cm : 0.14 sec sev ratio: 0.84 PA Accel Time : 0.10 sec MV dec time: 0.23 secAo V2 mean LV V1 max PG PA V2 mean : 114.6 cm/sec : 76.9 cm/sec Ao V2 VTI: 34.3 cm LV V1 VTI : 28.9 cm ALYSHA(V,D): 2.0 cm2 ALYSHA indexed to BSA Pulm A Revs Dur - MV A (cm^2/m^2): 1.4 Dur: -0.02 msec Reading Physician:MAUDE
[2016-05-27] MEDS: Dextrose 5% 0.45% NaCl 1,000 ML IV SCH (18:26)
[2016-05-27 19:30] VITALS: BP 171/78; PULSE 77; RESP 18; O2SAT 97
[2016-05-28] VITALS (12 sets, daily range): BP systolic 102–211; BP diastolic 57–93; PULSE 68–86; RESP 18–20; O2SAT 93–98
[2016-05-28] MEDS: 0.9% Sodium Chloride 1,000 ML IV SCH (03:18)
[2016-05-28] MEDS: Dextrose 5% 0.45% NaCl 1,000 ML IV SCH ×2 (04:08→13:54)
--- NOTE | 2016-05-28 04:33 | NUR ---
Activity Patient noted to not move around in bed independently. However, when staff is in the room, patient is compliant with care and able to follow commands. Assists staff with turning and repositioning. SNELL with some weakness noted to BERENICEE & TIERA. ASA suppository given per MD orders for anticoagulation prophylaxis. No s/sx of c/o pain or discomfort.
[2016-05-28 05:28] LABS: BASOPHILS % (AUTO) 0.4 % (0-3); EOSINOPHILS % (AUTO) 2.7 % (0-5); Mean Corpuscular Hemoglobin 30.5 pg (27.0-35.0); Mean Corpuscular Volume 92.2 fL (81-100); NEUTROPHILS % (AUTO) 64.5 % (40-74); Platelet Count 285 bil/L (150-400)
[2016-05-28 05:57] LABS: Magnesium 2.2 mg/dL (1.6-2.6); Phosphorus 1.9 mg/dL (2.5-4.9)
--- NOTE | 2016-05-28 10:29 | PCM.PNMED ---
Subjective Date of Service May 28, 2016 Subjective MS unchanged, pt looked lethargic, closed her eyes, talking insensible words followed simple commands, knows her name and the place Exam Vital Signs Vital Sign - Last Date Time Temp Pulse Resp B/P Pulse Ox O2 Delivery O2 Flow Rate FiO2 05/28/16 09:01 78 05/28/16 04:29 37.1 20 190/83 93 Room Air Intake and Output 05/27/16 05/27/16 05/28/16 Cumulative From/Thru 15:00 23:00 07:00 05/26/16 10:59 - 05/28/16 05:58 Intake Total 786 ml 1186 ml 2972 ml Output Total 674 ml 674 ml Balance 786 ml 512 ml 2298 ml Intake Oral 0 ml 0 ml 0 ml IV Total 786 ml 1186 ml 2972 ml Output Urine Total 674 ml 674 ml # Voids 3 6 # Bowel Movements 0 0 Exam Elderly, female, lethargic no JVD, MMM, no LAD RRR, nl s1, s2 no mrg CTAB, no w,c S,ND,NT,normoactive BS+ warm, no edema, pulses 2/2 neuro:mildly asymmetric face, no tongue deviation, PERRLA, EOMI motor strength, unable to assess given MS sensory intact to dull touch mumbling, no slurred speech, answer some questions IVs and Medications Medications Reviewed: Medications were reviewed in detail Lab and Diagnostics Result Diagram: 05/28/16 0520 05/28/16 0520 X-Rays, CTs and MRIs PROCEDURE: CT ANGIO HEAD AND NECK (P) INDICATIONS: Stroke TECHNIQUE: Pre-contrast 4.5 mm thick sections acquired from the foramen magnum to the vertex. After the administration of intravenous contrast, 1 mm thick sections acquired from the aortic arch through the [place] of [place]. Post-contrast 4.5 mm thick sections then re-acquired from the foramen magnum to the vertex. 3- dimensional mtmwzqu-powqfyrzj-mtahxyyhmy (MIP) and/or volume rendering reformats were acquired of the central intracranial vasculature and neck separately. For radiation dose reduction, the following was used: automated exposure control, adjustment of mA and/or kV according to patient size. COMPARISON: [facility], MR, MR BRAIN WO CON, 05/26/2016, 18:12. [facility], CT, CT BRAIN WO CON, 05/26/2016, 13:18. FINDINGS: Image quality: Excellent. BRAIN: CSF spaces: Ventricles are normal in shape. Diffuse prominence of CSF space noted. Basal cisterns are patent. No extra-axial fluid collections. Brain: No midline shift. No intracranial bleeds or masses. Hypodensities involving the right basal ganglia, right internal capsule and right best radiata patible subacute infarcts do not appear centrally changed in size or distribution compared to prior MRI. 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 Moderate periventricular and subcortical chronic microvascular ischemic changes are noted. Skull and face: Calvarium and facial bones appear intact, without suspicious lesions. Orbits appear normal. Sinuses: Sinuses and mastoids are clear. HEAD CT ANGIOGRAPHY: Anterior circulation: Intracranial internal carotid arteries are normal in flow. Atherosclerotic calcifications noted in the cavernous and supraclinoid segments of the in internal carotid arteries bilaterally. Atherosclerotic disease causes high grade stenosis of the supraclinoid segments of internal carotid arteries bilaterally and a focal high-grade stenosis at the junction of the petrous and cavernous segments of the left internal carotid artery. The flow within the paired anterior cerebral arteries is normal and symmetric. The flow within the middle cerebral arteries is normal and symmetric. The anterior communicating artery is seen. No aneurysms are seen. Posterior circulation: Scattered soft and calcified atherosclerotic plaque noted in right vertebral artery which causes multifocal high-grade stenoses. Scattered soft atherosclerotic plaque noted in the basilar artery which causes multifocal high-grade stenoses. Patient is left vertebral artery dominant. Left vertebral artery appears widely patent. Flow within the posterior cerebral arteries is normal and symmetric. No aneurysms are seen. There is normal contrast opacification of the dural sinuses. NECK CT ANGIOGRAPHY: Carotid system: The great vessels demonstrate a conventional anatomy as they arise from the aortic arch. The origins of the common carotid arteries appear patent. The common carotid arteries demonstrate normal caliber and courses. Calcified atherosclerotic plaque noted in the origins of the internal carotid arteries bilaterally. Atherosclerotic plaque causes high grade, greater than 70 % stenosis of the origin of the right internal carotid. Atherosclerotic plaque is high-grade, greater than 90% stenosis of the origin of the left internal artery. Posterior circulation: The origins of the vertebral arteries both appear widely patent. The more superior extracranial portions of both vertebral arteries also demonstrate normal courses and calibers. They join to form a normal appearing basilar artery. Soft tissues: Visualized neck soft tissues demonstrate no suspicious abnormalities. Bones: No suspicious bony lesions. Cervical spine degenerative disc disease and facet arthropathy are noted. Visualized cervical spine appears normally aligned. IMPRESSION: 1. No acute intracranial disease process. 2. Evolving subacute right basal ganglia/internal capsule/best radiata infarcts. 3. No intracranial hemorrhage. 4. High grade atherosclerotic stenosis involving the supraclinoid segments of the internal carotid arteries bilaterally and at the junction of the petrous and cavernous segments of the left internal carotid artery. 5. Multifocal, high-grade atherosclerotic stenosis involving the intracranial right vertebral artery and the basilar artery. 6. High-grade, greater than 70% stenosis of the origin of the right internal carotid artery. Severe high-grade chondromalacia and stenosis of the origin of the left internal carotid artery. 7. Left vertebral artery appears widely patent. Dictated by: Dinorah Thomas MD, PhD on 05/27/2016 at 15:21 Approved by: Dinorah Thomas MD, PhD on 05/27/2016 at 15:35 CT brain 1. Subacute versus chronic right globus pallidus lacunar infarct. 2. Chronic left globus pallidus lacunar infarct. 3. Mild, diffuse volume loss. 4. Severe periventricular and subcortical white matter chronic microvascular ischemic changes. 5. No intracranial hemorrhage. Dictated by: Dinorah Thomas MD, PhD on 05/26/2016 at 13:35 CT abdomen and pelvis 1. No acute disease process. 2. Cholelithiasis. 3. Colonic diverticulosis without evidence of diverticulitis. 4. Atherosclerosis. 5. Moderate-sized hiatal hernia. Dictated by: Dinorah Thomas MD, PhD on 05/26/2016 at 13:50 CT C-spine No fracture. No acute osseous lesion. If symptoms and/or clinical suspicion for pathology persists, evaluation with MRI may be helpful for further assessment. Normal CXR 12-lead ECG . Sinus rhythm 72 QRS 472ms . Left anterior fascicular block . Low voltage, precordial leads . Left ventricular hypertrophy . Anterior Q waves, possibly due to LVH . No previous ECG available for comparison Assessment & Plan 81-year-old female lives alone came in with altered level of consciousness, acute, active Acute encephalopathy in the setting of acute to subacute ischemic stroke, POA, CTH negative. MRI showed ischemic infarc in right basal ganglia area, [place] in the left. CTA showed Evolving subacute right basal ganglia/internal capsule/best radiata infarcts, extensive atherosclerotic changes with Multifocal, high-grade atherosclerotic stenosis in many areas. -appreciate input, recommended possible vascular surgery eval prior to d/c -allowed permissive HTN till today, given subacute infarc, possible hypertensive vasculopathy, will control BP better with labetalol and reasses MS -insert NG today, appreciate nutrition consult for feeding. 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 [employer] Mechanical Devices: Intermittant Pneumatic CD Time spent 35min Huey Amaya MD May 28, 2016 10:20
[2016-05-28] MEDS: Labetalol 5 mg/mL 4 mL Inj IVPUSH SCH ×3 (10:41→20:30)
--- NOTE | 2016-05-28 14:44 | NUR ---
FLORY signed. Nancy Coles [employer]
--- NOTE | 2016-05-28 14:45 | NUR ---
SNF Choice List Provided. Nancy Coles MSW
--- NOTE | 2016-05-28 15:13 | NUR ---
NUTRITION FOLLOW-UP: Assess: 81 YO female admitted with acute encephalopathy in the setting of acute to subacute ischemic stroke. MRI showing ischemic infarct in right basal ganglia area, [place] in the left. CTA showed evolving subacute right basal ganglia/internal capsule/best radiata infarcts, extensive atherosclerotic changes with multifocal, high-grade atherosclerotic stenosis in many areas. Neurology recommending possible vascular surgery eval. prior to discharge. Order received to initiate enteral feeding following NG tube placement today. Code status: full. PMHx: GERD, Bipolar, Depression, Hiatal hernia, Parathyroidectomy, Thyroidectomy. LABS: BUN 6, Cr 0.49, Glu 148, A1c 5.6, Ca 8.4, Phos 1.9. MEDICATIONS: Reviewed. MVI. DIET: Stimulation, PO refused x1 meal GI symptoms/stool: No BM recorded Skin integrity: No issues noted, Bhavesh: 13. ANTHROPOMETRICS: Current Wt: 63.8 kg BMI: 24.0 kg/t4Lxumh Wt: 63.7 kg IBW: 54.5 kgRecent wt changes: None noted ESTIMATED NEEDS: Calories: 0583-0726 kcal/d (25-30 kcal/kg/d) Protein: 65-95 g/d (11.5 g/kg/d) NUTRITION DIAGNOSIS: 1) Chewing/swallowing difficulty related to CVA as evidenced by mentation and need for stimulation diet and enteral feeding - PERSISTS. INTERVENTION: 1) Enteral feeding recommendation follows. Initiate Jevity 1.5 at 25 ml/hr. Once tolerance established, recommend advance 5 ml every 4 hr. to goal rate 50 ml/hr. Flush dose 40 ml H2O every 4 hr. Enteral feeding at goal will provide 1725 kcal, 73 g protein, sufficient to meet 100% nutrient needs. 2)Will adjust goal rate enteral feeding as PO intake increases. MONITOR/EVALUATE: Diet adv/nick, enteral feeding tolerance, Wt, Labs, Nutrition status, POC. Will follow per high nutrition risk guidelines.
--- NOTE | 2016-05-28 15:57 | NUR ---
Social Work- Initial Assessment Data: Pt is a 81 year old female admitted 05/26/16 for CVA, Altered Mental Status per H&P. Pt's insurance is Medicare and A[employer] and PCP is Flako Amador MD. SW unable to speak to pt due to altered mental status. SW spoke with pt's DPOA, son Lacho Mcdonnell [phone], by phone today to discuss discharge planning, SW role explained. Pt resides alone in a house on [address] where she remains independent with her ADLs with assistance from neighbors and sabianism friends. She uses a cane and walker at [place] and continues to drive. Pt has no HH or SNF experience. Pt has no LTC insurance or VA benefits. Pt has completed DPOA. DPOA is son Lacho Mcdonnell. PT recommends SNF at this time. SW explained PT's recommendation. Pt's son agreeable to this, SNF choice list provided. SW provided referral to [facility]. Access given. Paperwork in chart. PASRR in folder. SW continues to follow. Assessment: Pt who would benefit from SNF. Plan: PT recommending SNF at this time. Referral made to [facility]. Paperwork in chart. PASRR in folder. SW continues to follow. RUDY Thomas Addendum: 05/28/16 at 1603 by JONG JOHNS SS Amended: Links added.
--- NOTE | 2016-05-28 16:32 | DRSVH ---
PROCEDURE: X-RAY CHEST ONE VIEW, PORTABLE ([id number]) INDICATIONS: post NG insertion TECHNIQUE: One view of the chest was acquired. COMPARISON: [facility], CR, XR CHEST 1VW (PORTABLE), 05/26/2016, 10:57. FINDINGS: Surgical changes and devices: Feeding tube is present, tip of which is in the gastric lumen. Lungs and pleura: No pleural effusions or pneumothorax. Lungs are clear. Mediastinum: Mediastinal contours appear normal. Heart size is normal. Bones and chest wall: No suspicious bony lesions. Overlying soft tissues appear unremarkable. IMPRESSION: No acute process. Dictated by: Marcy Garvey M.D. on 05/28/2016 at 16:26 Approved by: Marcy Garvey M.D. on 05/28/2016 at 16:26
--- NOTE | 2016-05-28 18:10 | NUR ---
Tube feed Kangaroo NG feeding tube placed by Oxana Jackson RN. Placement confirmed by xray. Tube feed initiated at 18:00 per orders. Pt asked why we are not feeding her in her IV, although she could not express the word "IV"; explained benefits of tube feed.
[2016-05-29] VITALS (7 sets, daily range): BP systolic 116–169; BP diastolic 64–76; PULSE 64–106; RESP 16–18; O2SAT 93–98
[2016-05-29] MEDS: Dextrose 5% 0.45% NaCl 1,000 ML IV SCH (01:25)
[2016-05-29] MEDS: Labetalol 5 mg/mL 4 mL Inj IVPUSH SCH (02:30)
[2016-05-29 05:37] LABS: BASOPHILS % (AUTO) 0.3 % (0-3); EOSINOPHILS % (AUTO) 3.7 % (0-5); MONOCYTES % (AUTO) 12.1 % (4-12); Mean Corpuscular Hemoglobin 30.8 pg (27.0-35.0); NEUTROPHILS % (AUTO) 58.3 % (40-74); Platelet Count 290 bil/L (150-400)
--- NOTE | 2016-05-29 05:39 | NUR ---
Tube feeding/NG tube Pt with dobhoff NG tube, and kangaroo pump running, advanced to 35ml/hr, Pt tolerating well with 0 residual. Q2 turns for skin care, continue with hourly rounding
[2016-05-29 06:03] LABS: Magnesium 2.2 mg/dL (1.6-2.6); Phosphorus 2.5 mg/dL (2.5-4.9)
--- NOTE | 2016-05-29 06:20 | NUR ---
Hypotension Pt with hypotension, MD aware, labetolol held.
--- NOTE | 2016-05-29 10:39 | DRSVH ---
PROCEDURE: CT BRAIN WITHOUT CONTRAST ([id number]) INDICATIONS: 81 year-old female with increasing somnolence after stroke. Assess for hemorrhagic conve rsion. TECHNIQUE: Noncontrast 4.5 mm thick angled axial sections acquired from the foramen magnum to the vertex, with c oronal reformats. COMPARISON: [facility], MR, MR BRAIN WO CON, 05/26/2016, 18:12. [facility], CT, CT BRAIN WO CON, 05/26/2016, 13:18. [facility], CT, BRAIN W/O CONTRAST, 05/31/2008, 15 :25. FINDINGS: Image quality: Excellent. CSF spaces: Basal cisterns are patent. No extra-axial fluid collections. The ventricles are symmet jose a in size and shape. Brain: No intracranial bleeds or masses. There are widespread periventricular and deep white matter chronic small vessel ischemic changes. Right best radiata acute infarct is again noted, better de lineated on comparison MRI. Nonacute left basal ganglia lacunar infarct is again noted. There is intr acranial internal carotid artery atherosclerosis. Skull and face: Calvarium and visualized facial bones appear intact, without suspicious lesions. Sinuses: Visualized sinuses and mastoids are clear. IMPRESSION: 1. Right best radiata acute ischemic insult is unchanged, without hemorrhagic conversion. 2. Background widespread periventricular and deep white matter chronic small vessel ischemic change, as well as nonacute left basal ganglia lacunar infarct. Dictated by: Tad Kimbrough M.D. on 05/29/2016 at 10:34 Approved by: Tad Kimbrough M.D. on 05/29/2016 at 10:37
--- NOTE | 2016-05-29 11:50 | NUR ---
Social Work- Continued D/C Planning Data: EMR reviewed. Pt is on day 3 of hospitalization for CVA, Altered Mental Status per H&P. PT recommending SNF at this time. SW spoke with family yesterday regarding this recommendation, [facility] chosen. Referral made. RAYMOND received phone call from [facility] stating that they will accept patient at discharge with MD Chong to follow. Pt to discharge to [facility] with MD Chong to follow. RAYMOND updated pt and pt's family, all agreeable to plan. Paperwork in chart. [facility] faxed and in chart. RAYMOND continues to follow. Assessment: Pt who would benefit from SNF. Plan: PT recommending SNF at this time. Pt to discharge to [facility] with MD Chong to follow. Paperwork in chart. [facility] faxed and in chart. RAYMOND continues to follow. RUDY Thomas
--- NOTE | 2016-05-29 12:06 | PCM.PNMED ---
Subjective Date of Service May 29, 2016 Subjective pt seemed more lethargic this AM, barely responded to noxious stimuli STAT CTH didn't show hemorrhagic conversion or herniation, remaining acute stroke BP better controlled overnight with 110-160s, NG feeding started at 40cc, tolerating well. Exam Vital Signs Vital Sign - Last Date Time Temp Pulse Resp B/P Pulse Ox O2 Delivery O2 Flow Rate FiO2 05/29/16 09:49 93 05/29/16 07:20 36.8 18 169/76 94 Room Air Intake and Output 05/28/16 05/28/16 05/29/16 Cumulative From/Thru 15:00 23:00 07:00 05/26/16 10:59 - 05/29/16 05:33 Intake Total 1204 ml 1362 ml 5538 ml Output Total 1490 ml 0 ml 2164 ml Balance -286 ml 1362 ml 3374 ml Intake Oral 0 ml 0 ml IV Total 1204 ml 1028 ml 5204 ml Tube Feeding 294 ml 294 ml Tube Irrigant 40 ml 40 ml Output Urine Total 1490 ml 2164 ml Gastric Drainage Total 0 ml 0 ml # Voids 6 # Bowel Movements 0 0 Exam Elderly, female,somnolent no JVD, MMM, no LAD RRR, nl s1, s2 no mrg CTAB, no w,c S,ND,NT,normoactive BS+ warm, no edema, pulses 2/2 neuro:mildly asymmetric face, no tongue deviation, PERRLA, EOMI motor strength, unable to assess given MS IVs and Medications Medications Reviewed: Medications were reviewed in detail Lab and Diagnostics Result Diagram: 05/29/1652505/29/16525 X-Rays, CTs and MRIs PROCEDURE: CT ANGIO HEAD AND NECK (P) INDICATIONS: Stroke TECHNIQUE: Pre-contrast 4.5 mm thick sections acquired from the foramen magnum to the vertex. After the administration of intravenous contrast, 1 mm thick sections acquired from the aortic arch through the [place] of [place]. Post-contrast 4.5 mm thick sections then re-acquired from the foramen magnum to the vertex. 3- dimensional tvhabdv-xvibnmqrc-bpymyfekke (MIP) and/or volume rendering reformats were acquired of the central intracranial vasculature and neck separately. For radiation dose reduction, the following was used: automated exposure control, adjustment of mA and/or kV according to patient size. COMPARISON: [facility], MR, MR BRAIN WO CON, 05/26/2016, 18:12. [facility], CT, CT BRAIN WO CON, 05/26/2016, 13:18. FINDINGS: Image quality: Excellent. BRAIN: CSF spaces: Ventricles are normal in shape. Diffuse prominence of CSF space noted. Basal cisterns are patent. No extra-axial fluid collections. Brain: No midline shift. No intracranial bleeds or masses. Hypodensities involving the right basal ganglia, right internal capsule and right best radiata patible subacute infarcts do not appear centrally changed in size or distribution compared to prior MRI. 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 Moderate periventricular and subcortical chronic microvascular ischemic changes are noted. Skull and face: Calvarium and facial bones appear intact, without suspicious lesions. Orbits appear normal. Sinuses: Sinuses and mastoids are clear. HEAD CT ANGIOGRAPHY: Anterior circulation: Intracranial internal carotid arteries are normal in flow. Atherosclerotic calcifications noted in the cavernous and supraclinoid segments of the in internal carotid arteries bilaterally. Atherosclerotic disease causes high grade stenosis of the supraclinoid segments of internal carotid arteries bilaterally and a focal high-grade stenosis at the junction of the petrous and cavernous segments of the left internal carotid artery. The flow within the paired anterior cerebral arteries is normal and symmetric. The flow within the middle cerebral arteries is normal and symmetric. The anterior communicating artery is seen. No aneurysms are seen. Posterior circulation: Scattered soft and calcified atherosclerotic plaque noted in right vertebral artery which causes multifocal high-grade stenoses. Scattered soft atherosclerotic plaque noted in the basilar artery which causes multifocal high-grade stenoses. Patient is left vertebral artery dominant. Left vertebral artery appears widely patent. Flow within the posterior cerebral arteries is normal and symmetric. No aneurysms are seen. There is normal contrast opacification of the dural sinuses. NECK CT ANGIOGRAPHY: Carotid system: The great vessels demonstrate a conventional anatomy as they arise from the aortic arch. The origins of the common carotid arteries appear patent. The common carotid arteries demonstrate normal caliber and courses. Calcified atherosclerotic plaque noted in the origins of the internal carotid arteries bilaterally. Atherosclerotic plaque causes high grade, greater than 70 % stenosis of the origin of the right internal carotid. Atherosclerotic plaque is high-grade, greater than 90% stenosis of the origin of the left internal artery. Posterior circulation: The origins of the vertebral arteries both appear widely patent. The more superior extracranial portions of both vertebral arteries also demonstrate normal courses and calibers. They join to form a normal appearing basilar artery. Soft tissues: Visualized neck soft tissues demonstrate no suspicious abnormalities. Bones: No suspicious bony lesions. Cervical spine degenerative disc disease and facet arthropathy are noted. Visualized cervical spine appears normally aligned. IMPRESSION: 1. No acute intracranial disease process. 2. Evolving subacute right basal ganglia/internal capsule/best radiata infarcts. 3. No intracranial hemorrhage. 4. High grade atherosclerotic stenosis involving the supraclinoid segments of the internal carotid arteries bilaterally and at the junction of the petrous and cavernous segments of the left internal carotid artery. 5. Multifocal, high-grade atherosclerotic stenosis involving the intracranial right vertebral artery and the basilar artery. 6. High-grade, greater than 70% stenosis of the origin of the right internal carotid artery. Severe high-grade chondromalacia and stenosis of the origin of the left internal carotid artery. 7. Left vertebral artery appears widely patent. Dictated by: Dinorah Thomas MD, PhD on 05/27/2016 at 15:21 Approved by: Dinorah Thomas MD, PhD on 05/27/2016 at 15:35 CT brain 1. Subacute versus chronic right globus pallidus lacunar infarct. 2. Chronic left globus pallidus lacunar infarct. 3. Mild, diffuse volume loss. 4. Severe periventricular and subcortical white matter chronic microvascular ischemic changes. 5. No intracranial hemorrhage. Dictated by: Dinorah Thomas MD, PhD on 05/26/2016 at 13:35 CT abdomen and pelvis 1. No acute disease process. 2. Cholelithiasis. 3. Colonic diverticulosis without evidence of diverticulitis. 4. Atherosclerosis. 5. Moderate-sized hiatal hernia. Dictated by: Dinorah Thomas MD, PhD on 05/26/2016 at 13:50 CT C-spine No fracture. No acute osseous lesion. If symptoms and/or clinical suspicion for pathology persists, evaluation with MRI may be helpful for further assessment. Normal CXR 12-lead ECG . Sinus rhythm 72 QRS 472ms . Left anterior fascicular block . Low voltage, precordial leads . Left ventricular hypertrophy . Anterior Q waves, possibly due to LVH . No previous ECG available for comparison Assessment & Plan 81-year-old female lives alone came in with altered level of consciousness, acute, active Acute encephalopathy in the setting of acute to subacute ischemic stroke, POA, CTH negative. MRI showed ischemic infarc in right basal ganglia area, [place] in the left. CTA showed Evolving subacute right basal ganglia/internal capsule/best radiata infarcts, extensive atherosclerotic changes with Multifocal, high-grade atherosclerotic stenosis in many areas. repeat CTH3/5 showed no acute finding, -patient's MS seemed deteriorating today with evolving infarction -appreciate input, recommended possible vascular surgery eval prior to d/c -s/p permissive HTN until 05/28, control BP better as below -continue NG feeding, appreciate nutrition consult for feeding. -continue plavix, lipitor via NG -continue to hold meds for mood disorder #hypertensive, POA, [id number], amlodipine 10mg given today, with labetalol prn , chronic, stable, GERD, will continue PPI bid Bipolar Disorder, Major Depression, will hold home [employer] meds, dvt ppx: LMWH DNR/DNI, as per lengthy discussion with son, [id number] today. If pt condition gets worse, stroke turn into herniation, unstable v/s, cardiac/ respiratory arrest, family would not want further heroic measures, will get POLST once family arrives. diet: NG feeding, dispo: likely 2-3more days to SNF, spoke to [id number] living in [place], , willing to visit next Monday, updated, agreed on plan. VTE Mechanical Devices: Intermittant Pneumatic CD Time spent 35min Heuy Amaya MD May 29, 2016 12:06
--- NOTE | 2016-05-29 13:42 | NUR ---
Dubhoff / TF Pt with Dubhoff placed 05/28/16 TF of Jevity 1.5 per Dietary. At start of shift, infusing at 35ml/hr. At 0900, no residual obtained, increased TF to 40ml/hr with free water flush of 40ml. Pt difficult to arouse and drifts right back to sleep after opening her eyes. Meds crushed and given through Dubhoff. Pt tolerating. At 1330, 40ml water flushed given. No residual obtained - TF now to 45ml/hr. Secured to nose. Care continues. Addendum: 05/29/16 at 1751 by LEFTY SMITH RN At 1730, BG checked = 120. Pt alert and answering questions appropriately. Residual checked = 5mL, reinstilled through Dubhoff. Pt denying abd discomfort. TF increased to goal rate of 50ml/hr and flushed with 40mL water flush. Care continues.
--- NOTE | 2016-05-30 02:33 | NUR ---
Communication/tube feeding At 0200 Pt called out nurse, nurse, clearly. When arriving at room, Pt stated she needed to use the bathroom. (Pt incont B/B) Asked if she needed changing and she said Yes. Pt clear and speaking her needs. Responded appropriately to questions. Tolerating tube feeding, running at 50ml/hr, flush completed
[2016-05-30 06:35] LABS: BASOPHILS % (AUTO) 0.2 % (0-3); EOSINOPHILS % (AUTO) 2.2 % (0-5); Mean Corpuscular Hemoglobin 30.3 pg (27.0-35.0); Mean Corpuscular Volume 92.4 fL (81-100); Platelet Count 315 bil/L (150-400)
[2016-05-30 06:44] LABS: Magnesium 2.2 mg/dL (1.6-2.6); Phosphorus 2.9 mg/dL (2.5-4.9)
[2016-05-30 06:50] VITALS: BP 161/64; PULSE 89; RESP 16; O2SAT 96
[2016-05-30 09:19] VITALS: PULSE 99
--- NOTE | 2016-05-30 09:32 | NUR ---
FLORY: Patient unable to receive FLORY, DPOA is listed and [employer] SUPERINTENDENT agreed to call and give FLORY via phone.
--- NOTE | 2016-05-30 09:47 | PCM.PNMED ---
Subjective Date of Service May 30, 2016 Subjective pt is minimally communicative this AM opened her eyes spontaneously, denied any pain, still on NG feeding. noticed dense Lt sided weakness pt had mild fever once but no further fever, Exam Vital Signs Vital Sign - Last Date Time Temp Pulse Resp B/P Pulse Ox O2 Delivery O2 Flow Rate FiO2 05/30/16 09:19 99 05/30/16 06:50 36.8 16 161/64 96 Room Air Intake and Output 05/29/16 05/29/16 05/30/16 Cumulative From/Thru 15:00 23:00 07:00 05/26/16 10:59 - 05/30/16 06:50 Intake Total 449 ml 576 ml 664 ml 7227 ml Output Total 753 ml 881 ml 3798 ml Balance -304 ml 576 ml -217 ml 3429 ml Intake Oral 0 ml 0 ml 0 ml 0 ml IV Total 449 ml 5653 ml Tube Feeding 456 ml 544 ml 1294 ml Tube Irrigant 120 ml 120 ml 280 ml Output Urine Total 753 ml 881 ml 3798 ml Gastric Drainage Total 0 ml 0 ml # Voids 4 3 3 16 # Bowel Movements 0 0 0 0 Exam Elderly, female,somnolent no JVD, MMM, no LAD RRR, nl s1, s2 no mrg coarse BS anteriorly no w,c S,ND,NT,normoactive BS+ warm, no edema, pulses 2/2 neuro:Rt face-flattened, PERRLA, motor strength Rt side >Lt side 2/5 on noxious stimuli throughout IVs and Medications Medications Reviewed: Medications were reviewed in detail Lab and Diagnostics Result Diagram: 05/30/16 0535 05/30/16 0535 X-Rays, CTs and MRIs PROCEDURE: CT ANGIO HEAD AND NECK (P) INDICATIONS: Stroke TECHNIQUE: Pre-contrast 4.5 mm thick sections acquired from the foramen magnum to the vertex. After the administration of intravenous contrast, 1 mm thick sections acquired from the aortic arch through the [place] of [place]. Post-contrast 4.5 mm thick sections then re-acquired from the foramen magnum to the vertex. 3- dimensional dkbcewp-xqqhomuyk-unbexxgcqs (MIP) and/or volume rendering reformats were acquired of the central intracranial vasculature and neck separately. For radiation dose reduction, the following was used: automated exposure control, adjustment of mA and/or kV according to patient size. COMPARISON: [facility], MR, MR BRAIN WO CON, 05/26/2016, 18:12. [facility], CT, CT BRAIN WO CON, 05/26/2016, 13:18. FINDINGS: Image quality: Excellent. BRAIN: CSF spaces: Ventricles are normal in shape. Diffuse prominence of CSF space noted. Basal cisterns are patent. No extra-axial fluid collections. Brain: No midline shift. No intracranial bleeds or masses. Hypodensities involving the right basal ganglia, right internal capsule and right best radiata patible subacute infarcts do not appear centrally changed in size or distribution compared to prior MRI. 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 Moderate periventricular and subcortical chronic microvascular ischemic changes are noted. Skull and face: Calvarium and facial bones appear intact, without suspicious lesions. Orbits appear normal. Sinuses: Sinuses and mastoids are clear. HEAD CT ANGIOGRAPHY: Anterior circulation: Intracranial internal carotid arteries are normal in flow. Atherosclerotic calcifications noted in the cavernous and supraclinoid segments of the in internal carotid arteries bilaterally. Atherosclerotic disease causes high grade stenosis of the supraclinoid segments of internal carotid arteries bilaterally and a focal high-grade stenosis at the junction of the petrous and cavernous segments of the left internal carotid artery. The flow within the paired anterior cerebral arteries is normal and symmetric. The flow within the middle cerebral arteries is normal and symmetric. The anterior communicating artery is seen. No aneurysms are seen. Posterior circulation: Scattered soft and calcified atherosclerotic plaque noted in right vertebral artery which causes multifocal high-grade stenoses. Scattered soft atherosclerotic plaque noted in the basilar artery which causes multifocal high-grade stenoses. Patient is left vertebral artery dominant. Left vertebral artery appears widely patent. Flow within the posterior cerebral arteries is normal and symmetric. No aneurysms are seen. There is normal contrast opacification of the dural sinuses. NECK CT ANGIOGRAPHY: Carotid system: The great vessels demonstrate a conventional anatomy as they arise from the aortic arch. The origins of the common carotid arteries appear patent. The common carotid arteries demonstrate normal caliber and courses. Calcified atherosclerotic plaque noted in the origins of the internal carotid arteries bilaterally. Atherosclerotic plaque causes high grade, greater than 70 % stenosis of the origin of the right internal carotid. Atherosclerotic plaque is high-grade, greater than 90% stenosis of the origin of the left internal artery. Posterior circulation: The origins of the vertebral arteries both appear widely patent. The more superior extracranial portions of both vertebral arteries also demonstrate normal courses and calibers. They join to form a normal appearing basilar artery. Soft tissues: Visualized neck soft tissues demonstrate no suspicious abnormalities. Bones: No suspicious bony lesions. Cervical spine degenerative disc disease and facet arthropathy are noted. Visualized cervical spine appears normally aligned. IMPRESSION: 1. No acute intracranial disease process. 2. Evolving subacute right basal ganglia/internal capsule/best radiata infarcts. 3. No intracranial hemorrhage. 4. High grade atherosclerotic stenosis involving the supraclinoid segments of the internal carotid arteries bilaterally and at the junction of the petrous and cavernous segments of the left internal carotid artery. 5. Multifocal, high-grade atherosclerotic stenosis involving the intracranial right vertebral artery and the basilar artery. 6. High-grade, greater than 70% stenosis of the origin of the right internal carotid artery. Severe high-grade chondromalacia and stenosis of the origin of the left internal carotid artery. 7. Left vertebral artery appears widely patent. Dictated by: Dinorah Thomas MD, PhD on 05/27/2016 at 15:21 Approved by: Dinorah Thomas MD, PhD on 05/27/2016 at 15:35 CT brain 1. Subacute versus chronic right globus pallidus lacunar infarct. 2. Chronic left globus pallidus lacunar infarct. 3. Mild, diffuse volume loss. 4. Severe periventricular and subcortical white matter chronic microvascular ischemic changes. 5. No intracranial hemorrhage. Dictated by: Dinorah Thomas MD, PhD on 05/26/2016 at 13:35 CT abdomen and pelvis 1. No acute disease process. 2. Cholelithiasis. 3. Colonic diverticulosis without evidence of diverticulitis. 4. Atherosclerosis. 5. Moderate-sized hiatal hernia. Dictated by: Dinorah Thomas MD, PhD on 05/26/2016 at 13:50 CT C-spine No fracture. No acute osseous lesion. If symptoms and/or clinical suspicion for pathology persists, evaluation with MRI may be helpful for further assessment. Normal CXR 12-lead ECG . Sinus rhythm 72 QRS 472ms . Left anterior fascicular block . Low voltage, precordial leads . Left ventricular hypertrophy . Anterior Q waves, possibly due to LVH . No previous ECG available for comparison Assessment & Plan 81-year-old female lives alone came in with altered level of consciousness, acute, active Acute encephalopathy in the setting of acute to subacute ischemic stroke, POA, CTH negative. MRI showed ischemic infarc in right basal ganglia area, [place] in the left. CTA showed Evolving subacute right basal ganglia/internal capsule/best radiata infarcts, extensive atherosclerotic changes with Multifocal, high-grade atherosclerotic stenosis in many areas. repeat CT showed no acute finding, -patient's MS slowly improving, hoping to be improved in next 2-3days -appreciate input, recommended possible vascular surgery eval prior to d/c -s/p permissive HTN until 05/28, control BP better as below -continue NG feeding, appreciate nutrition consult for feeding. 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 If pt condition gets worse, stroke turn into herniation, unstable v/s, cardiac/ respiratory arrest, family would not want further heroic measures, will get POLST once family arrives. diet: NG feeding, dispo: likely 2-3more days to SNF, spoke to [id number] living in [place], , willing to visit next Monday, updated, agreed on plan. VTE Mechanical Devices: Intermittant Pneumatic CD Time spent 35min Huey Amaya MD May 30, 2016 09:47
--- NOTE | 2016-05-30 09:55 | DRSVH ---
PROCEDURE: X-RAY CHEST ONE VIEW, PORTABLE ([id number]) INDICATIONS: aspiration pneumonia TECHNIQUE: One view of the chest was acquired. COMPARISON: [facility], CR, XR CHEST 1VW (PORTABLE), 05/28/2016, 16:19. FINDINGS: Surgical changes and devices: A feeding tube is stable in position. Lungs and pleura: No pleural effusions or pneumothorax. Lungs are clear. Mediastinum: Mediastinal contours appear normal. Heart size is normal. Bones and chest wall: No suspicious bony lesions. Overlying soft tissues appear unremarkable. Compl ex left spine scoliosis. IMPRESSION: No acute cardiopulmonary disease process. Dictated by: Dinorah Thomas MD, PhD on 05/30/2016 at 9:53 Approved by: Dinorah Thomas MD, PhD on 05/30/2016 at 9:53
--- NOTE | 2016-05-30 10:51 | NUR ---
Wound Care [facility] Patient assessed per pressure ulcer protocol. Skin intact. Blanchable redness noted to bilateral elbows and left mid back. Patient with resolving intact blister measuring approx 0.5cm w x 0.2cm L to left mid-lateral back. Area of intact abrasion around blister and to left hip. Unknown cause, likely from fall at home prior to admit. Redness and blister do not appear to be caused by pressure. Nursing to continue to monitor and reconsult wound care if area does not continue to improve. Recommend P500 bed, q2 hour turning schedule, pillows under elbows as needed, and floating heels. RN to obtain P500 bed for patient use. Please reconsult wound care if further needs arise.
[2016-05-30 13:50] VITALS: BP 153/80; PULSE 94; RESP 16; O2SAT 93
--- NOTE | 2016-05-30 13:55 | NUR ---
NUTRITION FOLLOW-UP: Assess: 81 YO female admitted with acute encephalopathy in the setting of acute to subacute ischemic stroke. Neurology recommending possible vascular surgery eval. prior to discharge. Pt is currently on TF and tolerating well at goal rate with minimal residuals. No BM has been recorded yet. Wt overall has been stable. She is on a stimulation diet and is eating bites of food. PMHx: GERD, Bipolar, Depression, Hiatal hernia, Parathyroidectomy, Thyroidectomy. LABS: BUN 6, Cr 0.49, Glu 148, A1c 5.6, Ca 8.4, Phos 1.9. MEDICATIONS: Reviewed. MVI. DIET: Stimulation. PO is bites NUTRITION SUPPORT: Jevity 1.5 @ 50ml/hr providing 1725 kcal, 73 g protein, sufficient to meet 100% nutrient needs. GI symptoms/stool: No BM recorded Skin integrity: Per WC, no PU. Bhavesh 12 ANTHROPOMETRICS: Current Wt: 62.4 kg BMI: 22.9 kg/m2 Admit Wt: 63.7 kg IBW: 54.5 kg Recent wt changes: None noted ESTIMATED NEEDS: Calories: 6832-5567 kcal/d (25-30 kcal/kg/d) Protein: 65-95 g/d (1-1.5 g/kg/d) Fluids: 1595-1910ml/day (25-30ml/kg) NUTRITION DIAGNOSIS: 1) Chewing/swallowing difficulty related to CVA as evidenced by mentation and need for stimulation diet and enteral feeding-- PERSISTS, pt on TF INTERVENTION: 1) Continue TF at goal rate of 50ml/hr. Will increase pt's fluid flush to 100ml q 3 hrs to better meet fluids needs as she is not on IVF. TF+ free water flush will provide 1675ml water. RN is aware of fluid flush increase MONITOR/EVALUATE: Diet adv/nick, enteral feeding tolerance, Wt, Labs, Nutrition status, POC. Will follow per high nutrition risk guidelines.
--- NOTE | 2016-05-30 19:22 | NUR ---
Tube feeding / alertness continues at 50ml/hr and 100ml flush every 3 hrs. Pt seemingly sedated at times. Other times pt wide awake and answering questions. Pt A&OX4 when awake enough to answer questions. Delayed and very soft quiet response. Left arm and leg very little to no movement when asked. Slight facial droop continues. Care continues
[2016-05-30 20:00] VITALS: PULSE 92
[2016-05-30 20:29] VITALS: BP 172/89; PULSE 94; RESP 16; O2SAT 95
[2016-05-31 00:43] VITALS: BP 169/84; PULSE 91; RESP 18; O2SAT 96
--- NOTE | 2016-05-31 06:10 | NUR ---
Skin Care / mood Q2 turns for skin care continue, elbow and heel pads in place. Left side with slight movement in foot/ankle; left arm not at all. No evidence of anxiety; pt smiling in evening, appears to enjoy her company in evening.
[2016-05-31 06:39] LABS: BASOPHILS % (AUTO) 0.5 % (0-3); EOSINOPHILS % (AUTO) 3.1 % (0-5); MONOCYTES % (AUTO) 13.4 % (4-12); Mean Corpuscular Hemoglobin 30.9 pg (27.0-35.0); Mean Corpuscular Volume 94.1 fL (81-100); NEUTROPHILS % (AUTO) 59.7 % (40-74); Platelet Count 279 bil/L (150-400)
[2016-05-31 06:43] VITALS: BP 168/87; PULSE 80; RESP 16; O2SAT 95
[2016-05-31 07:14] LABS: Magnesium 2.3 mg/dL (1.6-2.6); Phosphorus 3.6 mg/dL (2.5-4.9)
[2016-05-31 10:11] VITALS: BP 168/92; PULSE 88; RESP 18; O2SAT 94
[2016-05-31 10:30] VITALS: PULSE 90
[2016-05-31 13:23] VITALS: BP 166/92; PULSE 92; RESP 18; O2SAT 95
--- NOTE | 2016-05-31 13:44 | PCM.PNMED ---
Subjective Date of Service May 31, 2016 Subjective pt is more communicative but looked very weak and soft spoken. denied pain, [place], following commands knows it's [facility]. 2017 but not month, date explained pt has stroke, pt seemed to understand. Exam Vital Signs Vital Sign - Last Date Time Temp Pulse Resp B/P Pulse Ox O2 Delivery O2 Flow Rate FiO2 05/31/16 13:23 36.7 92 18 166/92 95 Room Air Intake and Output 05/30/16 05/30/16 05/31/16 Cumulative From/Thru 15:00 23:00 07:00 05/26/16 10:59 - 05/31/16 06:43 Intake Total 941 ml 964 ml 9132 ml Output Total 0 ml 1449 ml 5247 ml Balance 941 ml -485 ml 3885 ml Intake Oral 0 ml 0 ml 0 ml IV Total 5653 ml Tube Feeding 659 ml 564 ml 2517 ml Tube Irrigant 282 ml 400 ml 962 ml Output Urine Total 1449 ml 5247 ml Gastric Drainage Total 0 ml 0 ml 0 ml # Voids 3 3 22 # Bowel Movements 1 0 1 Exam Elderly, female, spontaneous eye opening, no JVD, MMM, no LAD RRR, nl s1, s2 no mrg coarse BS anteriorly no w,c S,ND,NT,normoactive BS+ warm, no edema, pulses 2/2 neuro:Rt face-flattened, PERRLA, motor strength LUE 1/5 LLE 2/5 markedly decreased sensation on left side, IVs and Medications Medications Reviewed: Medications were reviewed in detail Lab and Diagnostics Result Diagram: 05/31/1662705/31/16627 X-Rays, CTs and MRIs PROCEDURE: CT ANGIO HEAD AND NECK (P) INDICATIONS: Stroke TECHNIQUE: Pre-contrast 4.5 mm thick sections acquired from the foramen magnum to the vertex. After the administration of intravenous contrast, 1 mm thick sections acquired from the aortic arch through the [place] of [place]. Post-contrast 4.5 mm thick sections then re-acquired from the foramen magnum to the vertex. 3- dimensional jpzrjsy-bejyjlgmj-skhcigeycw (MIP) and/or volume rendering reformats were acquired of the central intracranial vasculature and neck separately. For radiation dose reduction, the following was used: automated exposure control, adjustment of mA and/or kV according to patient size. COMPARISON: [facility], MR, MR BRAIN WO CON, 05/26/2016, 18:12. [facility], CT, CT BRAIN WO CON, 05/26/2016, 13:18. FINDINGS: Image quality: Excellent. BRAIN: CSF spaces: Ventricles are normal in shape. Diffuse prominence of CSF space noted. Basal cisterns are patent. No extra-axial fluid collections. Brain: No midline shift. No intracranial bleeds or masses. Hypodensities involving the right basal ganglia, right internal capsule and right best radiata patible subacute infarcts do not appear centrally changed in size or distribution compared to prior MRI. 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 Moderate periventricular and subcortical chronic microvascular ischemic changes are noted. Skull and face: Calvarium and facial bones appear intact, without suspicious lesions. Orbits appear normal. Sinuses: Sinuses and mastoids are clear. HEAD CT ANGIOGRAPHY: Anterior circulation: Intracranial internal carotid arteries are normal in flow. Atherosclerotic calcifications noted in the cavernous and supraclinoid segments of the in internal carotid arteries bilaterally. Atherosclerotic disease causes high grade stenosis of the supraclinoid segments of internal carotid arteries bilaterally and a focal high-grade stenosis at the junction of the petrous and cavernous segments of the left internal carotid artery. The flow within the paired anterior cerebral arteries is normal and symmetric. The flow within the middle cerebral arteries is normal and symmetric. The anterior communicating artery is seen. No aneurysms are seen. Posterior circulation: Scattered soft and calcified atherosclerotic plaque noted in right vertebral artery which causes multifocal high-grade stenoses. Scattered soft atherosclerotic plaque noted in the basilar artery which causes multifocal high-grade stenoses. Patient is left vertebral artery dominant. Left vertebral artery appears widely patent. Flow within the posterior cerebral arteries is normal and symmetric. No aneurysms are seen. There is normal contrast opacification of the dural sinuses. NECK CT ANGIOGRAPHY: Carotid system: The great vessels demonstrate a conventional anatomy as they arise from the aortic arch. The origins of the common carotid arteries appear patent. The common carotid arteries demonstrate normal caliber and courses. Calcified atherosclerotic plaque noted in the origins of the internal carotid arteries bilaterally. Atherosclerotic plaque causes high grade, greater than 70 % stenosis of the origin of the right internal carotid. Atherosclerotic plaque is high-grade, greater than 90% stenosis of the origin of the left internal artery. Posterior circulation: The origins of the vertebral arteries both appear widely patent. The more superior extracranial portions of both vertebral arteries also demonstrate normal courses and calibers. They join to form a normal appearing basilar artery. Soft tissues: Visualized neck soft tissues demonstrate no suspicious abnormalities. Bones: No suspicious bony lesions. Cervical spine degenerative disc disease and facet arthropathy are noted. Visualized cervical spine appears normally aligned. IMPRESSION: 1. No acute intracranial disease process. 2. Evolving subacute right basal ganglia/internal capsule/best radiata infarcts. 3. No intracranial hemorrhage. 4. High grade atherosclerotic stenosis involving the supraclinoid segments of the internal carotid arteries bilaterally and at the junction of the petrous and cavernous segments of the left internal carotid artery. 5. Multifocal, high-grade atherosclerotic stenosis involving the intracranial right vertebral artery and the basilar artery. 6. High-grade, greater than 70% stenosis of the origin of the right internal carotid artery. Severe high-grade chondromalacia and stenosis of the origin of the left internal carotid artery. 7. Left vertebral artery appears widely patent. Dictated by: Dinorah Thomas MD, PhD on 05/27/2016 at 15:21 Approved by: Dinorah Thomas MD, PhD on 05/27/2016 at 15:35 CT brain 1. Subacute versus chronic right globus pallidus lacunar infarct. 2. Chronic left globus pallidus lacunar infarct. 3. Mild, diffuse volume loss. 4. Severe periventricular and subcortical white matter chronic microvascular ischemic changes. 5. No intracranial hemorrhage. Dictated by: Dinorah Thomas MD, PhD on 05/26/2016 at 13:35 CT abdomen and pelvis 1. No acute disease process. 2. Cholelithiasis. 3. Colonic diverticulosis without evidence of diverticulitis. 4. Atherosclerosis. 5. Moderate-sized hiatal hernia. Dictated by: Dinorah Thomas MD, PhD on 05/26/2016 at 13:50 CT C-spine No fracture. No acute osseous lesion. If symptoms and/or clinical suspicion for pathology persists, evaluation with MRI may be helpful for further assessment. Normal CXR 12-lead ECG . Sinus rhythm 72 QRS 472ms . Left anterior fascicular block . Low voltage, precordial leads . Left ventricular hypertrophy . Anterior Q waves, possibly due to LVH . No previous ECG available for comparison Assessment & Plan 81-year-old female lives alone came in with altered level of consciousness, acute, active Acute encephalopathy in the setting of acute to subacute ischemic stroke, POA, CTH negative. MRI showed ischemic infarc in right basal ganglia area, Old lacune in the left. CTA showed Evolving subacute right basal ganglia/internal capsule/best radiata infarcts, extensive atherosclerotic changes with Multifocal, high-grade atherosclerotic stenosis in many areas. repeat CT/ showed no acute finding, -patient's MS slowly improving, hope to be able to participate PT in next 1- 2days. -appreciate input, recommended possible vascular surgery eval prior to d/c -s/p permissive HTN until 05/28, control BP better as below -continue NG feeding, appreciate nutrition consult for feeding. -continue plavix, lipitor via NG -continue to hold meds for mood disorder #hypertensive, POA, [id number], continue amlodipine 10mg today, with labetalol prn, #one episode of mild fever, on 05/29, high risks of aspiration PNA, will get CXR, UA, consider starting abx, trends fever, procalcitonin chronic, stable, GERD, will continue PPI bid Bipolar Disorder, Major Depression, will hold home [employer] meds, dvt ppx: LMWH DNR/DNI, as per lengthy discussion with son, [id number] today. If pt condition gets worse, stroke turn into herniation, unstable v/s, cardiac/ respiratory arrest, family would not want further heroic measures, will get POLST once family arrives. diet: NG feeding, dispo: likely SNF tomorrow with NG feeding, son/ [id number] living in [place], , plan to visit today, will discuss about plan face to face. [employer]: Intermittant Pneumatic CD Time spent 35min Huey Amaya MD May 31, 2016 13:44
--- NOTE | 2016-05-31 16:19 | NUR ---
NUTRITION FOLLOW-UP: Assess: 81 YO female admitted with acute encephalopathy in the setting of acute to subacute ischemic stroke. Neurology recommending possible vascular surgery eval. prior to discharge. Pt is currently on TF and tolerating well at goal rate with minimal residuals, fluids increased to 100ml q 3 hrs with discontinuation of IVF.Wt overall has been stable. She is on a stimulation diet and is eating bites of food. PMHx: GERD, Bipolar, Depression, Hiatal hernia, Parathyroidectomy, Thyroidectomy. LABS: Glu 137, A1c 5.6, Alb 3.4 MEDICATIONS: Reviewed. MVI. DIET: Stimulation. PO is bites NUTRITION SUPPORT: Jevity 1.5 @ 50ml/hr providing 1725 kcal, 73 g protein, sufficient to meet 100% nutrient needs. GI symptoms/stool: BM 1 05/30 Skin integrity: Per WC, no PU. Bhavesh 12 ANTHROPOMETRICS: Current Wt: 63.8 kg BMI: 23.4 kg/m2 Admit Wt: 63.7 kg IBW: 54.5 kg Recent wt changes: None noted ESTIMATED NEEDS: Calories: 1576-3586 kcal/d (25-30 kcal/kg/d) Protein: 65-95 g/d (1-1.5 g/kg/d) Fluids: 1595-1910ml/day (25-30ml/kg) NUTRITION DIAGNOSIS: 1) Chewing/swallowing difficulty related to CVA as evidenced by mentation and need for stimulation diet and enteral feeding-- PERSISTS, pt on TF INTERVENTION: 1) Continue TF at goal rate of 50ml/hr. Will increase pt's fluid flush to 100ml q 3 hrs to better meet fluids needs as she is not on IVF. TF+ free water flush will provide 1675ml water. RN is aware of fluid flush increase MONITOR/EVALUATE: Diet adv/nick, enteral feeding tolerance, Wt, Labs, Nutrition status, POC. Will follow per high nutrition risk guidelines.
--- NOTE | 2016-05-31 20:11 | NUR ---
Mentation/feedings Patient fairly fatigued today sleeping most of day. Patient awakened and was able to take Po Meds crushed and placed in applesauce , patient with verbal cueing to swallow and was able to follow commands. Pt with appropriate answers to questions today but very delayed in answering them. Left side remains flaccid. Dobbhoff noted with feedings going.
[2016-05-31 21:09] VITALS: BP 157/79; PULSE 84; RESP 18; O2SAT 95
[2016-06-01 02:04] VITALS: BP 175/72; PULSE 97; RESP 18; O2SAT 95
[2016-06-01 02:37] LABS: APPEARANCE,URINE CLOUDY (CLEAR,HAZY); COLOR,URINE YELLOW (YELLOW); OCCULT BLOOD,URINE NEGATIVE (NEGATIVE); PH,URINE 7.5 (5.0-8.0); UROBILINOGEN,URINE NORMAL (NORMAL)
[2016-06-01 04:08] VITALS: PULSE 95
[2016-06-01 05:40] VITALS: BP 181/85; PULSE 100; RESP 16; O2SAT 94
[2016-06-01 06:18] LABS: BASOPHILS % (AUTO) 0.6 % (0-3); EOSINOPHILS % (AUTO) 3.6 % (0-5); MONOCYTES % (AUTO) 9.9 % (4-12); Mean Corpuscular Hemoglobin 30.7 pg (27.0-35.0); Mean Corpuscular Volume 93.8 fL (81-100); NEUTROPHILS % (AUTO) 60.6 % (40-74); Platelet Count 314 bil/L (150-400)
--- NOTE | 2016-06-01 06:28 | NUR ---
communication pt was woke easily to voice. she answered all questions appropriately. she also used her call light appropriately this shift to ask for different things like the tv turned off or to have her positioned changed. pt had visitors that expressed concern that patient appeared more lethargic and did not interact with them. nurse assured them that patient had been talking to nurse and that she appeared tired but alert this shift. care continues.
[2016-06-01 06:36] LABS: Magnesium 2.3 mg/dL (1.6-2.6); Phosphorus 3.4 mg/dL (2.5-4.9)
[2016-06-01] MEDS ORDERED: ATOR40TA69 PO (07:56)
[2016-06-01] MEDS ORDERED: CLOP75TA28 PO (07:56)
[2016-06-01] MEDS ORDERED: AMLO5TAB2 PO (07:56)
--- NOTE | 2016-06-01 09:55 | NUR ---
Evaluation completed. Please go to "Notes" then click on "Assessments and Notes" (bottom left corner of screen). Then select appropriate discipline tab on top of screen.
[2016-06-01 10:16] VITALS: BP 158/85; PULSE 85; RESP 18; O2SAT 94
--- NOTE | 2016-06-01 10:16 | PCM.DIMED ---
Discharge Instructions Date of Service Jun 01, 2016 Dates of Hospitalization May 26, 2016 at 15:18 Discharge Diagnosis Discharge Diagnosis acute/subacute ischemic infarts on right basal ganglia/internal capsule/best radiata infarcts. residual dense left sided deficit, dysphagia, Medication Instructions New medicine was started take amlodipine 10mg daily take atorvastatin 40mg daily take clopidogrel 75mg daily Pleas stop taking aspirin. Diet Other (NG feeding for now swallowing eval as pt improves) Activity Other (physical therapy) Patient Instructions You were hospitalized with confusion, found to have acute and subacute stroke, resulted in loss of your motor function on Left side, inability of eating, Instruction to SNF> Please note that patient' MS is wax and wane, still very weak to initiate PT, continue daily assessment, continue aggressive PT to gain more functions Please continue NG feeding for now, further discussion with family and the tpatient about PEG placement if patient doesn't improve Patient underwent permissive HTN, started amlodipine newly, please consider more strict BP control with new agents, currently BP trends varies [id number] As per family, code status is DNR/DNI, recommend to do more goals of care discussion with official POLST form NUTRITION FOLLOW-UP: Assess: 81 YO female admitted with acute encephalopathy in the setting of acute to subacute ischemic stroke. Neurology recommending possible vascular surgery eval. prior to discharge. Pt is currently on TF and tolerating well at goal rate with minimal residuals, fluids increased to 100ml q 3 hrs with discontinuation of IVF.Wt overall has been stable. She is on a stimulation diet and is eating bites of food. PMHx: GERD, Bipolar, Depression, Hiatal hernia, Parathyroidectomy, Thyroidectomy. LABS: Glu 137, A1c 5.6, Alb 3.4 MEDICATIONS: Reviewed. MVI. DIET: Stimulation. PO is bites NUTRITION SUPPORT: Jevity 1.5 @ 50ml/hr providing 1725 kcal, 73 g protein, sufficient to meet 100% nutrient needs. GI symptoms/stool: BM 1 3/6 Skin integrity: Per WC, no PU. Bhavesh 12 ANTHROPOMETRICS: Current Wt: 63.8 kg BMI: 23.4 kg/m2 Admit Wt: 63.7 kg IBW: 54.5 kg Recent wt changes: None noted ESTIMATED NEEDS: Calories: 2852-7998 kcal/d (25-30 kcal/kg/d) Protein: 65-95 g/d (1-1.5 g/kg/d) Fluids: 1595-1910ml/day (25-30ml/kg) NUTRITION DIAGNOSIS: 1) Chewing/swallowing difficulty related to CVA as evidenced by mentation and need for stimulation diet and enteral feeding-- PERSISTS, pt on TF INTERVENTION: 1) Continue TF at goal rate of 50ml/hr. Will increase pt's fluid flush to 100ml q 3 hrs to better meet fluids needs as she is not on IVF. TF+ free water flush will provide 1675ml water. RN is aware of fluid flush increase MONITOR/EVALUATE: Diet adv/nick, enteral feeding tolerance, Wt, Labs, Nutrition status, POC. Will follow per high nutrition risk guidelines. Follow-up plan Please follow up with the doctor in SNF Follow-up Provider: Flako Amador MD Follow-up with PCP in: 1 week Huey Amaya MD Jun 01, 2016 10:16
--- NOTE | 2016-06-01 10:45 | NUR ---
Arranged S transport for 1245PM via [facility]. Faxed orders to [facility] and placed copy on chart. PCS completed and EMPLOYEE RELATIONS CONSULTANT signed. Updated EMPLOYEE RELATIONS CONSULTANT and RN
[2016-06-01 10:54] VITALS: PULSE 94
--- NOTE | 2016-06-01 11:07 | NUR ---
Social Work Note: Received notification from that pt. okay to d/c to SNF today. Current plan is for pt. to go to [facility]. Asked KEILA/Mumtaz to coordinate d/c and arrange BLS transport. Met with pt. and family at bedside. All aware and agreeable to plan. P: [facility] today via BLS at 12:45pm. RN and family notified. RUDY [facility]
--- NOTE | 2016-06-01 13:31 | NUR ---
spiritual care: follow up brief visit as pt preparing for discharge. pt weary, son and dtr in room. Family reported on rehab at [facility] and i agreed to contact cattle sprayer yee at [facility] for follow up
--- NOTE | 2016-06-01 14:57 | NUR ---
Transfer/discharge Patient was discharged to [facility] today for further rehabilitation. Report called to admission nurse . Patient transported via BLS. Family present upon discharge. [place] feedings stopped and tube clamped for transport. Belongings sent along with patient.
--- NOTE | 2016-06-01 15:43 | PCM.DC.MED ---
Discharge Summary Date of Service Jun 01, 2016 Dates of Hospitalization Date of Hospital Admission May 26, 2016 at 15:18 Date of Discharge: Jun 01, 2016 Providers: Admitting Physician: Reuben Greene MD Primary Care Physician: Flako Amador MD Attending Physician: Reuben Greene MD Diagnosis at Time of Discharge Diagnosis at Time of Discharge acute problems acute/subacute ischemic infarts on right basal ganglia/internal capsule/best radiata infarcts. residual dense left sided deficit, dysphagia, dysarthria chronic problem GERD Bipolar Disorder, Major Depression Procedures XRay, CTs & MRIs PROCEDURE: CT ANGIO HEAD AND NECK (P) INDICATIONS: Stroke TECHNIQUE: Pre-contrast 4.5 mm thick sections acquired from the foramen magnum to the vertex. After the administration of intravenous contrast, 1 mm thick sections acquired from the aortic arch through the [place] of [place]. Post-contrast 4.5 mm thick sections then re-acquired from the foramen magnum to the vertex. 3- dimensional cjdvciw-zwolywqhn-axhtpvppcb (MIP) and/or volume rendering reformats were acquired of the central intracranial vasculature and neck separately. For radiation dose reduction, the following was used: automated exposure control, adjustment of mA and/or kV according to patient size. COMPARISON: [facility], MR, MR BRAIN WO CON, 05/26/2016, 18:12. [facility], CT, CT BRAIN WO CON, 05/26/2016, 13:18. FINDINGS: Image quality: Excellent. BRAIN: CSF spaces: Ventricles are normal in shape. Diffuse prominence of CSF space noted. Basal cisterns are patent. No extra-axial fluid collections. Brain: No midline shift. No intracranial bleeds or masses. Hypodensities involving the right basal ganglia, right internal capsule and right best radiata patible subacute infarcts do not appear centrally changed in size or distribution compared to prior MRI. 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 Moderate periventricular and subcortical chronic microvascular ischemic changes are noted. Skull and face: Calvarium and facial bones appear intact, without suspicious lesions. Orbits appear normal. Sinuses: Sinuses and mastoids are clear. HEAD CT ANGIOGRAPHY: Anterior circulation: Intracranial internal carotid arteries are normal in flow. Atherosclerotic calcifications noted in the cavernous and supraclinoid segments of the in internal carotid arteries bilaterally. Atherosclerotic disease causes high grade stenosis of the supraclinoid segments of internal carotid arteries bilaterally and a focal high-grade stenosis at the junction of the petrous and cavernous segments of the left internal carotid artery. The flow within the paired anterior cerebral arteries is normal and symmetric. The flow within the middle cerebral arteries is normal and symmetric. The anterior communicating artery is seen. No aneurysms are seen. Posterior circulation: Scattered soft and calcified atherosclerotic plaque noted in right vertebral artery which causes multifocal high-grade stenoses. Scattered soft atherosclerotic plaque noted in the basilar artery which causes multifocal high-grade stenoses. Patient is left vertebral artery dominant. Left vertebral artery appears widely patent. Flow within the posterior cerebral arteries is normal and symmetric. No aneurysms are seen. There is normal contrast opacification of the dural sinuses. NECK CT ANGIOGRAPHY: Carotid system: The great vessels demonstrate a conventional anatomy as they arise from the aortic arch. The origins of the common carotid arteries appear patent. The common carotid arteries demonstrate normal caliber and courses. Calcified atherosclerotic plaque noted in the origins of the internal carotid arteries bilaterally. Atherosclerotic plaque causes high grade, greater than 70 % stenosis of the origin of the right internal carotid. Atherosclerotic plaque is high-grade, greater than 90% stenosis of the origin of the left internal artery. Posterior circulation: The origins of the vertebral arteries both appear widely patent. The more superior extracranial portions of both vertebral arteries also demonstrate normal courses and calibers. They join to form a normal appearing basilar artery. Soft tissues: Visualized neck soft tissues demonstrate no suspicious abnormalities. Bones: No suspicious bony lesions. Cervical spine degenerative disc disease and facet arthropathy are noted. Visualized cervical spine appears normally aligned. IMPRESSION: 1. No acute intracranial disease process. 2. Evolving subacute right basal ganglia/internal capsule/best radiata infarcts. 3. No intracranial hemorrhage. 4. High grade atherosclerotic stenosis involving the supraclinoid segments of the internal carotid arteries bilaterally and at the junction of the petrous and cavernous segments of the left internal carotid artery. 5. Multifocal, high-grade atherosclerotic stenosis involving the intracranial right vertebral artery and the basilar artery. 6. High-grade, greater than 70% stenosis of the origin of the right internal carotid artery. Severe high-grade chondromalacia and stenosis of the origin of the left internal carotid artery. 7. Left vertebral artery appears widely patent. Dictated by: Dinorah Thomas MD, PhD on 05/27/2016 at 15:21 Approved by: Dinorah Thomas MD, PhD on 05/27/2016 at 15:35 CT brain 1. Subacute versus chronic right globus pallidus lacunar infarct. 2. Chronic left globus pallidus lacunar infarct. 3. Mild, diffuse volume loss. 4. Severe periventricular and subcortical white matter chronic microvascular ischemic changes. 5. No intracranial hemorrhage. Dictated by: Dinorah Thomas MD, PhD on 05/26/2016 at 13:35 CT abdomen and pelvis 1. No acute disease process. 2. Cholelithiasis. 3. Colonic diverticulosis without evidence of diverticulitis. 4. Atherosclerosis. 5. Moderate-sized hiatal hernia. Dictated by: Dinorah Thomas MD, PhD on 05/26/2016 at 13:50 CT C-spine No fracture. No acute osseous lesion. If symptoms and/or clinical suspicion for pathology persists, evaluation with MRI may be helpful for further assessment. Normal CXR ECG 12 Lead . Sinus rhythm 72 QRS 472ms . Left anterior fascicular block . Low voltage, precordial leads . Left ventricular hypertrophy . Anterior Q waves, possibly due to LVH . No previous ECG available for comparison Brief History HPI obtained by on 05/26 81 year old female with a history of GERD, bipolar disorder, depression presenting to the emergency department via EMS due to fall that occurred just prior to arrival. Pt states she fell out of bed and and reports headache and neck pain, but otherwise denies any injuries. Denies LOC. Pt lives alone, neighbor reports confusion and states, "she is not acting herself." Denies nausea, vomiting, dizziness, lightheadedness, abdominal pain, constipation, or diarrhea. En route blood sugar 194. A friend present in the room adds that pt had a fall one week ago and was evaluated at that time with negative CT head. Friend adds that she appears confused and weak which is abnormal from baseline, pt is normally highly functional. Patient is improving but still probably not mentating perfectly normally. Her neighbor is present when I am interviewing her and states that she speaking basically normally for herself however seems to me that she has problems maintaining attention with me some difficulty following even simple commands. She fell about 2 weeks ago and a broke a closet door hitting her right eye the bruise is almost resolved, she fell out of bed this morning and used her life alert to call 911. She is unable to tell me really that there was anything the matter prior to this. Her neighbor tells me that she had her 's picture out he passed in December 2015 and she may be particularly depressed at this time. Hospital Course 81-year-old female lives alone came in with altered level of consciousness, Acute problems Acute encephalopathy in the setting of acute to subacute ischemic stroke, POA, CTH negative on admission. MRI showed ischemic infarc in right basal ganglia area, [place] in the left. CTA showed Evolving subacute right basal ganglia/ internal capsule/best radiata infarcts, extensive atherosclerotic changes with Multifocal, high-grade atherosclerotic stenosis in many areas. Patient was initially not communicative, seemed clinically worsened therefore, CTH was repeated on 05/29 which showed no acute finding. Eventually was able to communicate minimally, noted to have severe left sided deficit. pt was continued on NG feeding, all of labs were unremarkable, didn't develop any infection. pt was allowed permissive HTN for first few days then BP was better controlled with amlodipine 10mg today, with labetalol prn. Patient was consulted by ED with neurology, recommended possible vascular intervention given extensive findings on CTA. However, after discussion with family, decided that patient won't likely benefit from intervention, discussed about goals of care, changed her code status to DNR/DNI. production maintenance mechanic prognosis, possibility of feeding tube were also discussed with patients, agreed on plan. patient is being discharged to SNF, eventually to the place where close to family's place. Importance of plavix, statin, aggressive PT, BP control explained to family as well. Patient was started on plavix and lipitor 40mg, given via NGT, tolerated well without adverse effect. chronic problem GERD,continued PPI bid home dose, Bipolar Disorder, Major Depression, held antidepressant Exam Vital Signs (Last) Date Time Temp Pulse Resp B/P Pulse Ox O2 Delivery O2 Flow Rate FiO2 06/01/16 10:54 94 06/01/16 10:16 36.7 18 158/85 94 Room Air Exam Elderly, female, spontaneous eye opening, no JVD, MMM, no LAD RRR, nl s1, s2 no mrg coarse BS anteriorly no w,c S,ND,NT,normoactive BS+ warm, no edema, pulses 2/2 neuro:Rt face-flattened, PERRLA, motor strength LUE 1/5 LLE 2/5 markedly decreased sensation on left side, Test 05/26/16 11:10 05/29/16 05:26 05/30/16 05:35 06/01/16 02:15 Prothrombin Time 10.5sec (8.1-12.5) Prothromb Time International Ratio 0.98ratio Hemoglobin A1c 5.6% (4.8-5.6) Troponin T 0.010ug/L (0.0-0.011) Thyroid Stimulating Hormone (TSH) 2.760uIU/mL (0.450-4.500) Free Thyroxine 1.25ng/dL (0.82-1.77) Hold Birch Top Tube Received (Received) Alcohol, Quantitative < 10mg/dL (0-10) Triglycerides Level 113mg/dL (0-149) Cholesterol Level 197mg/dL (100-199) LDL Cholesterol, Calculated 113.400mg/dL (0-99) VLDL Cholesterol 22.600mg/dL HDL Cholesterol 61mg/dL (>39) Cholesterol/HDL Ratio 3.23 (0.0-4.4) Procalcitonin 0.04ng/mL (0.00-0.08) Urine Color Yellow (YELLOW) Urine Appearance Cloudy (CLEAR,HAZY) Urine pH 7.5 (5.0-8.0) Urine Specific [place] 1.010 (1.003-1.035) Urine Protein Negativemg/dL (NEG,TRACE) Urine Glucose (UA) Negativemg/dL (NEGATIVE) Urine Ketones Negativemg/dL (NEGATIVE) Urine Occult Blood Negative (NEGATIVE) Urine Nitrite Negative (NEGATIVE) Urine Bilirubin Negative (NEGATIVE) Urine Urobilinogen Normalmg/dL (NORMAL) Urine Leukocyte Esterase Small (NEGATIVE) Urine RBC 0-2/hpf (0-2) Urine WBC 0-5/hpf (0-5) Urine Epithelial Cells Moderate/hpf (NONE-MOD) Urine Crystals Amorphous urates (NONE Urine Bacteria Moderate/hpf (NONE-FEW) Urine Hyaline Casts None/lpf (NONE) Urine Granular Casts None seen (NONE SEEN) Urine Waxy Casts None seen (NONE SEEN) Urine Red Blood Cell Casts None seen (NONE SEEN) Urine White Blood Cell Casts None seen (NONE SEEN) Urine Mucus None seen (None Seen) Urine Trichomonas None seen (NONE SEEN) Urine Yeast None (NONE SEEN) Urinalysis Comment None Urine Culture Reflexed Indicated Test 06/01/16 05:50 White Blood Count 8.7th/mm3 (3.8-10.1) Red Blood Count 4.85mil/mm3 (3.90-5.20) Hemoglobin 14.9g/dL (12.0-15.6) Hematocrit 45.5% (35.0-46.0) Mean Corpuscular Volume 93.8fL (81-100) Mean Corpuscular Hemoglobin 30.7pg (27.0-35.0) Mean Corpuscular Hemoglobin Concent 32.7% (32.0-37.0) Red Cell Distribution Width 14.7% (12.3-15.4) Platelet Count 314bil/L (150-400) Neutrophils (%) (Auto) 60.6% (40-74) Lymphocytes (%) (Auto) 25.0% (14-46) Monocytes (%) (Auto) 9.9% (4-12) Eosinophils (%) (Auto) 3.6% (0-5) Basophils (%) (Auto) 0.6% (0-3) Sodium Level 142mEq/L (134-144) Potassium Level 4.4mEq/L (3.5-5.2) Chloride Level 101mEq/L (97-108) Carbon Dioxide Level 25mmol/L (18-29) Blood Urea Nitrogen 24mg/dL (8-27) Creatinine 0.51mg/dL (0.57-1.00) Estimat Glomerular Filtration Rate 165mL/min (>59) Glucose Level 158mg/dL (60-99) Calcium Level 8.7mg/dL (8.5-10.1) Phosphorus Level 3.4mg/dL (2.5-4.9) Magnesium Level 2.3mg/dL (1.6-2.6) Total Bilirubin 0.2mg/dL (0.0-1.2) Aspartate Amino Transf (AST/SGOT) 30U/L (0-50) Alanine Aminotransferase (ALT/SGPT) 26U/L (0-32) Alkaline Phosphatase 78U/L (25-165) Total Protein 6.2g/dL (6.4-8.4) Albumin 3.4g/dL (3.4-5.0) Discharge Medications Discharge Medications Amlodipine (Amlodipine) 5 Mg Tablet 10 MG PO DAILY Prescribed by: HUEY MATHUR MD Atorvastatin Calcium (Atorvastatin Calcium) 40 Mg Tablet 40 MG PO DAILY Prescribed by: HUEY MATHUR MD Calcium Carbonate/Vitamin D3 (Calcium 500 mg Chewable Tablet) 1 Each Tab.chew 3 EACH PO DAILY (Reported) Cholecalciferol (Vitamin D3) (Vitamin D) 1,000 Unit Capsule 1,000 UNIT PO DAILY (Reported) Clopidogrel (Clopidogrel) 75 Mg Tablet 75 MG PO DAILY Prescribed by: HUEY MATHUR MD Estrogens Conjugated (Premarin) 0.625 Mg Tablet 0.625 MG PO DAILY (Reported) Lamotrigine (Lamotrigine) 200 Mg Tablet 200 MG PO DAILY (Reported) Multivitamin (Multi Vitamin Daily) 1 Each Tablet 1 EACH PO DAILY (Reported) Pantoprazole DR (Pantoprazole DR) 40 Mg Tablet.dr 40 MG PO BID (Reported) Venlafaxine ER (Venlafaxine ER) 75 Mg Cap.er.24h 75 MG PO BID (Reported) Vitamin E (Dl,Tocopheryl Acet) (Vitamin E) 100 Unit Capsule Unknown Dose PO DAILY (Reported) As needed Aspirin/Acetaminophen/Caffeine (Extra Pain Relief Caplet) 250 Mg-250 Mg-65 Mg Tablet 1 EACH PO DIRECTED PRN PRN For Pain (Reported) Additional med instructions New medicine was started take amlodipine 10mg daily take atorvastatin 40mg daily take clopidogrel 75mg daily Pleas stop taking aspirin. Followup Plan Disposition: SNF Follow-up plan Please follow up with the doctor in SNF Discharge Diet: Other (NG feeding for now swallowing eval as pt improves) Discharge Activity: Other (physical therapy) Patient Instructions You were hospitalized with confusion, found to have acute and subacute stroke, resulted in loss of your motor function on Left side, inability of eating, Instruction to SNF> Please note that patient' MS is wax and wane, still very weak to initiate PT, continue daily assessment, continue aggressive PT to gain more functions Please continue NG feeding for now, further discussion with family and the tpatient about PEG placement if patient doesn't improve Patient underwent permissive HTN, started amlodipine newly, please consider more strict BP control with new agents, currently BP trends varies [id number] As per family, code status is DNR/DNI, recommend to do more goals of care discussion with official POLST form NUTRITION FOLLOW-UP: Assess: 81 YO female admitted with acute encephalopathy in the setting of acute to subacute ischemic stroke. Neurology recommending possible vascular surgery eval. prior to discharge. Pt is currently on TF and tolerating well at goal rate with minimal residuals, fluids increased to 100ml q 3 hrs with discontinuation of IVF.Wt overall has been stable. She is on a stimulation diet and is eating bites of food. PMHx: GERD, Bipolar, Depression, Hiatal hernia, Parathyroidectomy, Thyroidectomy. LABS: Glu 137, A1c 5.6, Alb 3.4 MEDICATIONS: Reviewed. MVI. DIET: Stimulation. PO is bites NUTRITION SUPPORT: Jevity 1.5 @ 50ml/hr providing 1725 kcal, 73 g protein, sufficient to meet 100% nutrient needs. GI symptoms/stool: BM 1 / Skin integrity: Per WC, no PU. Bhavesh 12 ANTHROPOMETRICS: Current Wt: 63.8 kg BMI: 23.4 kg/m2 Admit Wt: 63.7 kg IBW: 54.5 kg Recent wt changes: None noted ESTIMATED NEEDS: Calories: 5911-2195 kcal/d (25-30 kcal/kg/d) Protein: 65-95 g/d (1-1.5 g/kg/d) Fluids: 1595-1910ml/day (25-30ml/kg) NUTRITION DIAGNOSIS: 1) Chewing/swallowing difficulty related to CVA as evidenced by mentation and need for stimulation diet and enteral feeding-- PERSISTS, pt on TF INTERVENTION: 1) Continue TF at goal rate of 50ml/hr. Will increase pt's fluid flush to 100ml q 3 hrs to better meet fluids needs as she is not on IVF. TF+ free water flush will provide 1675ml water. RN is aware of fluid flush increase MONITOR/EVALUATE: Diet adv/nick, enteral feeding tolerance, Wt, Labs, Nutrition status, POC. Will follow per high nutrition risk guidelines. Follow-up Provider: Flako Amador MD Follow-up with PCP in: 1 week Time spent 65min Huey Mathur MD Jun 01, 2016 15:43
== END 2016-06-01 13:30 | DRG 64 ==
LOC: SED 10:31 → OSC 15:18
PROVIDERS: ADMIT Hospitalist; ATTEND Hospitalist
DX: I63.9 Cerebral infarction, unspecified (principal); G93.40 Encephalopathy, unspecified; R13.10 Dysphagia, unspecified; R47.1 Dysarthria and anarthria; I10 Essential (primary) hypertension; K21.9 Gastro-esophageal reflux disease without esophagitis; Z91.81 History of falling; Z79.82 Long term (current) use of aspirin

== ENCOUNTER 2016-06-04 10:57 | Inpatient (IN) | payer MEDICARE ==
[~2016-06-04] VITALS: Ht 160 cm; Wt 63.5 kg
[~2016-06-04 10:57] MED LIST changes: +AMLO5TAB2 PO; -ASPI-973 PO; +ATOR40TA69 PO; -CALC-190 PO; +CALC-952 PO; +CLOP75TA28 PO; -Excedrin PO; -PANT40SU PO; +PANT40TA3 PO; +VITA100C22 PO; +[UNRECOGNIZED DRUG - CODE] PO
[2016-06-04 10:58] VITALS: BP 147/63; PULSE 75; RESP 20; O2SAT 97
--- NOTE | 2016-06-04 11:10 | ED.REPORT ---
HPI-General Illness Date of Service Jun 04, 2016 ED Provider: Dr. Snyder Pt is an 81 year old female with a hx of bipolar, CVA, depression, encephalopathy, HTN, GERD and a hernia presenting to the ED from [facility] via EMS due to a clogged feeding tube. Pt is not alert or oriented at baseline. She was sent here to get a new NG tube inserted. Nursing Notes Stated Complaint: CLOGGED FEEDING TUBE Chief Complaint: General Complaint Nursing Notes Reviewed: Yes Allergies: Coded Allergies: citalopram (Verified Allergy, Unknown, 05/26/16) paroxetine (Verified Allergy, Unknown, 05/26/16) ciprofloxacin (Verified Adverse Reaction, Mild, diarrhea, 05/26/16) lansoprazole (Verified Adverse Reaction, Mild, intolerance, 05/26/16) Scheduled Amlodipine (Amlodipine) 5 Mg Tablet 10 MG PO DAILY Aspirin (Aspirin) 81 Mg Tablet 81 MG PO DAILY Atorvastatin Calcium (Atorvastatin Calcium) 40 Mg Tablet 40 MG PO DAILY Calcium Carbonate/Vitamin D3 (Calcium 500 mg Chewable Tablet) 1 Each Tab.chew 3 EACH PO DAILY Cholecalciferol (Vitamin D3) (Vitamin D) 1,000 Unit Capsule 1,000 UNIT PO DAILY Clopidogrel (Clopidogrel) 75 Mg Tablet 75 MG PO DAILY Estrogens Conjugated (Premarin) 0.625 Mg Tablet 0.625 MG PO DAILY Lamotrigine (Lamotrigine) 200 Mg Tablet 200 MG PO DAILY Losartan Potassium (Losartan Potassium) 50 Mg Tablet 50 MG PO DAILY Multivitamin (Multi Vitamin Daily) 1 Each Tablet 1 EACH PO DAILY Pantoprazole DR (Pantoprazole DR) 40 Mg Tablet.dr 40 MG PO BID Venlafaxine ER (Venlafaxine ER) 75 Mg Cap.er.24h 75 MG PO BID Vitamin E (Dl,Tocopheryl Acet) (Vitamin E) 100 Unit Capsule 400 MG PO DAILY Scheduled PRN Acetaminophen (Acetaminophen) 325 Mg Capsule 325-650 MG PO Q4H PRN PRN For Pain Labetalol (Labetalol) 100 Mg Tablet 100 MG PO BID PRN PRN FOR SYSTOLIC GREATER THAN 160 General Time Seen by MD: 11:09 Chief Complaint Other (Feeding tube problem) Hx Obtained From: EMS Arrived By: Ambulance Sudden in Onset?: No Onset Occurred: Onset unknown Symptom Duration: Since onset Severity: Current: No pain currently Severity: Maximum: No pain Recent Healthcare: Recent doctor visit, Recent hospitalization Similar Sx Previous: No Past Medical History Past Medical History CVA GERD Bipolar Disorder Major Depression HIatial Hernia Past Surgical History 1. Appendectomy. 2. Hysterectomy. 3. Thyroidectomy. 4. Parathyroidectomy. 5. Previous cystoscopy. 6. Left ureteral stent placement. 7. Feeding tube insertion Smoking History Never Smoker Social History Alcohol Use: Denies alcohol use Ambulatory Status Independent Review of Systems Unable to Obtain ROS Mental status Physical Exam Vital Signs Vital Signs Date Time Temp Pulse Resp B/P Pulse Ox O2 Delivery O2 Flow Rate FiO2 06/04/16 14:31 36.9 80 20 153/60 97 Nasal Cannula 5 06/04/16 13:00 36.8 77 20 149/59 95 Nasal Cannula 5 06/04/16 10:58 36.7 75 20 147/63 97 Room Air Initial VS: Reviewed, Vital signs abnormal Neck: Supple Respiratory: Breath sounds normal, Clear to auscultation, No respiratory distress Cardiovascular: Regular rate & rhythm, Heart sounds normal, Intact distal pulses Abdomen / GI: Soft Extremities: Vascular intact, Neuro intact, No swelling, No tenderness Skin: Warm, Dry, No cyanosis General/Constitutional: No acute distress Head / Eyes: Normocephalic Old bruise to left cheek. Upper Extremities Upper Extremity / MS: No edema Lower Extremity / Pelvis / MS: No edema Interpretation & Diagnostics Lab Results Interpretation Result Diagram: 06/04/16 1310 06/04/16 1310 Test 06/04/16 13:10 White Blood Count 9.7th/mm3 (3.8-10.1) Red Blood Count 4.90mil/mm3 (3.90-5.20) Hemoglobin 15.1g/dL (12.0-15.6) Hematocrit 46.3% (35.0-46.0) Mean Corpuscular Volume 94.5fL (81-100) Mean Corpuscular Hemoglobin 30.8pg (27.0-35.0) Mean Corpuscular Hemoglobin Concent 32.6% (32.0-37.0) Red Cell Distribution Width 14.3% (12.3-15.4) Platelet Count 309bil/L (150-400) Neutrophils (%) (Auto) 60.3% (40-74) Lymphocytes (%) (Auto) 29.2% (14-46) Monocytes (%) (Auto) 6.9% (4-12) Eosinophils (%) (Auto) 2.9% (0-5) Basophils (%) (Auto) 0.4% (0-3) Prothrombin Time 11.1sec (8.1-12.5) Prothromb Time International Ratio 1.04ratio Sodium Level 141mEq/L (134-144) Potassium Level 4.7mEq/L (3.5-5.2) Chloride Level 104mEq/L (97-108) Carbon Dioxide Level 23mmol/L (18-29) Blood Urea Nitrogen 35mg/dL (8-27) Creatinine 0.54mg/dL (0.57-1.00) Estimat Glomerular Filtration Rate 155mL/min (>59) Glucose Level 97mg/dL (60-99) Calcium Level 8.9mg/dL (8.5-10.1) Magnesium Level 2.7mg/dL (1.6-2.6) Hold Birch Top Tube Received (Received) X-Ray Chest Interpretation Chest Xray Interpretation: IMPRESSION: Dobbhoff feeding tube with the tip projecting in the distal stomach. Dictated by: Tommie Young M.D. on 06/04/2016 at 12:20 POST NG TUBE INSERTION: IMPRESSION: Moderate right pneumothorax. Findings are personally and immediately telephoned to Dr. Snyder in the emergency department 1351 hours 06/04/16 Dobbhoff tube with the tip seen in the stomach. Dictated by: Tommie Young M.D. on 06/04/2016 at 13:36 View: Portable, 1 view Interpretation / Wet Read by: Interpret - Radiologist Procedures NG Tube Insertion Resulting pneumothorax. Time: 12:39 Procedure Performed by: ED physician Site of Insertion: Nare right # of Attempts: 4 Size of Oral/NG Tube: 16 Fr Placement/Verification/Secured: Insertion difficult, Placement by X-ray, Secured with tape, Verified by x-ray Post-Procedure / Complications: Tolerated procedure well, Patient stable Re-Eval/Medical Decision Med Decision/Clinical Course The patient is nonverbal and was sent for NG tube placement. After the NG tube she noted the patient was intermittently hypoxic. The x-ray showed the tube looking like is going into the right lung. The tube was pulled out and was eventually inserted into the stomach by me. It appears the patient has a pneumothorax related to NG tube placement. I spoke with Dr. Miles who came in consult on the patient. Informed the family and the patient will be admitted for initially observation and possible chest tube placement. Time of Eval: 12:39 Patient Status: Condition improved Re-Evaluation/Progress Note: Pt having NG tube inserted, attempted multiple times. RAD shows a new pneumothorax. NG tube insertion successful. Consultation #1: Referral / Consult Name: Brianne Vann MD Consulted With: Surgeon Call Returned at: 12:55 Wireline Supervisor: Will see patient Consultation #2: Call Returned at: 13:19 Note: Spoke to the patient's son and daughter in law about pneumothorax and discussed different treatment options. They would like to admit the pt for observation. Consultation #3: Referral / Consult Name: Brianne Vann MD Consulted With: Surgeon Call Returned at: 13:25 Note: Dr. Vann will call the pt's family. Consultation #4: Referral / Consult Name: Rosalia Gee DO Consulted With: Hospitalist Call Returned at: 14:21 Wireline Supervisor: Will see patient, Agrees with plan, Accepts admit Counseled Regarding: Diagnosis, Lab results, Need for follow-up, When/why to return to ED Discharge & Departure Primary Impression: Pneumothorax Pneumothorax type: postprocedural Qualified Code: J95.811 - Postprocedural pneumothorax Disposition: ADMITTED TO HOSPITAL Discharge Condition All VS Reviewed: Yes Condition: Improved Referrals: Flako Amador MD (PCP) [place] Attestation Portions of this note were transcribed by Kelle Law. I, Dr. Snyder personally performed the history, physical exam and medical decision-making; I reviewed and confirmed the accuracy of the information in the transcribed note. Signed by : Ulises Garcia, 06/04/2016 and 1427. copies to: Flako Amador MD, Jena M MD Jun 04, 2016 11:10 KELLE LAW Jun 04, 2016 11:41
--- NOTE | 2016-06-04 12:24 | DRSVH ---
PROCEDURE: X-RAY CHEST ONE VIEW, PORTABLE ([id number]) INDICATIONS: check tube placement TECHNIQUE: One view of the chest was acquired. COMPARISON: [facility], CR, XR CHEST 1VW (PORTABLE), 05/30/2016, 9:18. FINDINGS: Surgical changes and devices: Dobbhoff feeding tube is seen with the tip in the stomach Lungs and pleura: No pleural effusions or pneumothorax. Lungs are clear. Mediastinum: Mediastinal contours appear normal. Heart size is normal. Bones and chest wall: No suspicious bony lesions. Overlying soft tissues appear unremarkable. IMPRESSION: Dobbhoff feeding tube with the tip projecting in the distal stomach Dictated by: Tommie Young M.D. on 06/04/2016 at 12:20 Approved by: Tommie Young M.D. on 06/04/2016 at 12:23
[2016-06-04] MEDS ORDERED: 0.9% Sodium Chloride 250 ML IV ONE (12:50)
[2016-06-04 13:00] VITALS: BP 149/59; PULSE 77; RESP 20; O2SAT 95
[2016-06-04 13:27] LABS: BASOPHILS % (AUTO) 0.4 % (0-3); EOSINOPHILS % (AUTO) 2.9 % (0-5); MONOCYTES % (AUTO) 6.9 % (4-12); Mean Corpuscular Hemoglobin 30.8 pg (27.0-35.0); Mean Corpuscular Volume 94.5 fL (81-100); NEUTROPHILS % (AUTO) 60.3 % (40-74); Platelet Count 309 bil/L (150-400)
[2016-06-04 13:43] LABS: INR 1.04 ratio
--- NOTE | 2016-06-04 13:53 | DRSVH ---
PROCEDURE: X-RAY CHEST ONE VIEW, PORTABLE ([id number]) INDICATIONS: Feeding tube placement TECHNIQUE: One view of the chest was acquired. COMPARISON: [facility], CR, XR CHEST 1VW (PORTABLE), 06/04/2016, 11:34. FINDINGS: Surgical changes and devices: Multiple images demonstrating repositioning of a Dobbhoff feeding tube. On the left submitted image, timed stamped 12 4532 p.m., the Dobbhoff tube is seen with the tip in t he stomach Lungs and pleura: There is a moderate right pneumothorax. Mediastinum: Mediastinal contours appear normal. Heart size is normal. Bones and chest wall: No suspicious bony lesions. Overlying soft tissues appear unremarkable. IMPRESSION: Moderate right pneumothorax. Findings are personally and immediately telephoned to Dr. Snyder in the e mergency department 1351 hours 06/04/16 Dobbhoff tube with the tip seen in the stomach Dictated by: Tommie Young M.D. on 06/04/2016 at 13:36 Approved by: Tommie Young M.D. on 06/04/2016 at 13:51
[2016-06-04 14:10] LABS: Magnesium 2.7 mg/dL (1.6-2.6)
[2016-06-04] MEDS ORDERED: 0.9% Sodium Chloride 500 ML IV ONE (14:20)
[2016-06-04 14:31] VITALS: BP 153/60; PULSE 80; RESP 20; O2SAT 97
[2016-06-04] MEDS ORDERED: ACET325C PO (14:37)
[2016-06-04] MEDS ORDERED: ASPI-973 PO (14:37)
[2016-06-04] MEDS ORDERED: LABE100T4 PO (14:37)
[2016-06-04] MEDS ORDERED: LOSA50TA37 PO (14:39)
[2016-06-04] MEDS ORDERED: Ondansetron 2 mg/mL 2 mL Inj IVPUSH PRN (15:00)
--- NOTE | 2016-06-04 15:03 | PCM.HPMED ---
Subjective Date of Service Jun 04, 2016 Primary Provider: Admitting Physician: Rosalia Gee DO Primary Care Physician: Flako Amador MD Attending Physician: Rosalia Gee DO Allergies Coded Allergies: citalopram (Verified Allergy, Unknown, 05/26/16) paroxetine (Verified Allergy, Unknown, 05/26/16) ciprofloxacin (Verified Adverse Reaction, Mild, diarrhea, 05/26/16) lansoprazole (Verified Adverse Reaction, Mild, intolerance, 05/26/16) PMH Social History Hx Alcohol Use: No Hx Substance Use: No Hx Tobacco Use: No Smoking Status: Never Smoker Exam Vital Signs Vital Sign - Last Date Time Temp Pulse Resp B/P Pulse Ox O2 Delivery O2 Flow Rate FiO2 06/04/16 14:31 36.9 80 20 153/60 97 Nasal Cannula 5 Lab and Diagnostics Result Diagram: 06/04/16 1310 06/04/16 1310 Rosalia Gee DO Jun 04, 2016 15:03
--- NOTE | 2016-06-04 15:38 | DRSVH ---
PROCEDURE: X-RAY CHEST ONE VIEW, PORTABLE ([id number]) INDICATIONS: pneumothorax TECHNIQUE: One view of the chest was acquired. COMPARISON: [facility], CR, XR CHEST 1VW (PORTABLE), 06/04/2016, 12:32. FINDINGS: Surgical changes and devices: Enteric tube is again noted with the tip projecting in the stomach.. Lungs and pleura: Moderate to large right pneumothorax is slightly increased in size since earlier sa me day at 1232 hours Mediastinum: Mediastinal contours appear normal. Heart size is normal. Bones and chest wall: No suspicious bony lesions. Overlying soft tissues appear unremarkable. IMPRESSION: Slight interval increase in moderate to large right pneumothorax since earlier same day a t 1232 hours. Dictated by: Tommie Young M.D. on 06/04/2016 at 15:35 Approved by: Tommie Young M.D. on 06/04/2016 at 15:36
[2016-06-04 16:07] VITALS: BP 152/74; PULSE 76; RESP 20; O2SAT 94
[2016-06-04] MEDS ORDERED: fentaNYL-PF 50 mCg/mL 2 mL Inj ONE (16:08)
[2016-06-04] MEDS ORDERED: Lidocaine 2% 5 mL Topical Jelly TOPICAL ONE (16:10)
--- NOTE | 2016-06-04 16:24 | CONS ---
[address] [address] CONSULTATION REPORT PATIENT: KEERTHI VILLAREAL : 1935 MR#: [id number] ADMIT: 06/04/2016 JOB ID: [id number] DATE OF SERVICE: 06/04/2016 CHIEF COMPLAINT: An 81-year-old lady with iatrogenic right pneumothorax seen in consultation at the request of Anisha Snyder MD. HISTORY OF PRESENT ILLNESS: The patient is an 81-year-old lady with stroke and has been feeding tube dependent at [facility]. She was brought in by medics due to a clogged feeding tube today. She came into the emergency to have a new NG tube inserted and there was reportedly some difficulty in advancing the tube. The tube was ultimately placed into the stomach but in the course of these events a new right pneumothorax was noted. At this point, the patient is nonverbal at baseline. OTHER MEDICAL PROBLEMS: 1. Bipolar disease. 2. Cerebrovascular accident. 3. Depression. 4. Encephalopathy. 5. Hypertension. 6. Gastroesophageal reflux disease. PRIOR OPERATIONS: 1. Appendectomy. 2. Hysterectomy. 3. Thyroidectomy. 4. Parathyroidectomy. 5. Cystoscopy. 6. Ureteral stent placement. SOCIAL HISTORY: She does not smoke. She lives in [place]. Her immediate family is her son and her [id number] who were here with her right now. REVIEW OF SYSTEMS: Unable to obtain due to patient's nonverbal status. MEDICATIONS AT HOME: 1. Amlodipine. 2. Atorvastatin. 3. Calcium. 4. Cholecalciferol. 5. Vitamin D3. 6. Clopidogrel. 7. Lamotrigine. 8. Pantoprazole. 9. Venlafaxine. 10. Vitamin E. ALLERGIES: 1. Citalopram. 2. Paroxetine. 3. Ciprofloxacin. 4. Lansoprazole. INVESTIGATIONS: Chest x-ray reviewed starting from February 22 to June 05, which showed progressive increase in moderate right pneumothorax. PHYSICAL EXAMINATION: An 81-year-old lady, nonverbal. Appears to be in no acute distress. Temperature 36.9, pulse 80, respiratory rate 20, blood pressure 153/60, saturating 97% on 5 L nasal cannula. Eyes: Normal pupils, conjunctivae. No lymphadenopathy or jugular venous distention. Normal effort. Decreased breath sounds on the right. Regular rate and rhythm. Abdomen soft. ASSESSMENT AND PLAN: Enlarging iatrogenic pneumothorax. Discussed the alternatives of management with the family. Given she has an enlarging pneumothorax recommended a tube thoracostomy. She is at a high risk given her overall medical status and her being on clopidogrel. They understand the risks and wish to proceed.
[2016-06-04] MEDS: 0.9% Sodium Chloride 1,000 ML IV SCH (17:03)
--- NOTE | 2016-06-04 17:38 | DRSVH ---
PROCEDURE: X-RAY CHEST ONE VIEW ([id number]) INDICATIONS: RIGHT CHEST TUBE PLACEMENT TECHNIQUE: One view of the chest was acquired. COMPARISON: [facility], CR, XR CHEST 1VW (PORTABLE), 06/04/2016, 15:09. FINDINGS: Surgical changes and devices: Right chest tube is noted, and no residual pneumothorax. Feeding tube i s seen with the tip in the stomach. Lungs and pleura: No pleural effusions. Lung volumes are low. Lungs are clear except for mild scatt ered atelectasis. Mediastinum: Mediastinal contours appear normal. Heart size is normal. Bones and chest wall: No suspicious bony lesions. Lateral curvature of the spine Overlying soft tis sues appear unremarkable. IMPRESSION: Status post placement of right chest tube. No residual pneumothorax identified. Dobbhoff tube with the tip projecting in the stomach Dictated by: Tommie Young M.D. on 06/04/2016 at 17:35 Approved by: Tommie Young M.D. on 06/04/2016 at 17:37
--- NOTE | 2016-06-04 17:53 | NUR ---
[facility] Patient arrived at [facility] at 1545 from ER, came to floor with right side pneumothorax. Patient is on 4 L NC, with sats 94%, VSS, Hx of left sided CVA two weeks ago. Patient has NG tube that was in place on arrival at hospital but clogged. New NG placed in ER on fourth attempt. NPO due to swallow precautions, bedrest, NS 100, and LOC x2. Addendum: 06/04/16 at 1818 by VIKTOR PHELPS RN CHEST TUBE Dr Vann in to insert chest tube at 1600, consent signed, patient prepared, and procedure explained to family. Chest tube inserted and hooked up to low suction. Patient tolerated procedure well, no signs of respiratory distress, chest tube hooked up to low suction, no bubbling at this point, X-ray done to check placement. Patient resting quietly, site c/d/i.
[2016-06-04 18:16] VITALS: BP 177/80; PULSE 82; RESP 20; O2SAT 97
--- NOTE | 2016-06-04 19:22 | PROCED ---
[address] [address] PROCEDURE NOTE PATIENT: KEERTHI VILLAREAL : 1935 MR#: [id number] ADMIT: 06/04/2016 JOB ID: [id number] DATE OF SERVICE: 06/04/2016 PREOPERATIVE DIAGNOSIS(ES): Moderate right pneumothorax. POSTOPERATIVE DIAGNOSIS(ES): Moderate right pneumothorax. PROCEDURE PERFORMED: Right tube thoracostomy. SURGEON: Brianne Vann MD. COMPLICATIONS: None. INDICATIONS: An 81-year-old lady with iatrogenic right pneumothorax from a feeding tube placement. She was nonverbal, and after discussing the risks, benefits, and alternatives with her son, they wished to proceed. PROCEDURE DETAILS: Her right chest was prepped and draped in the usual sterile fashion. A surgical time-out was undertaken. Then, I infiltrated the site in the midaxillary line close to the 6th intercostal space with 1% lidocaine. I then made a horizontal incision and dissected to the chest wall bluntly and entered the chest pleural space with a blunt clamp and got a gush of air. Then, confirmed intrapleural entry with digital palpation. Then, I advanced a 16-Greek chest tube and connected it to the atrium and postprocedure chest x-ray showed tube going towards the base, but the pneumothorax was resolved. The patient tolerated the procedure well. Sterile dressing was applied and procedure was terminated.
[2016-06-04 20:50] VITALS: BP 176/83; PULSE 84; RESP 20; O2SAT 99
--- NOTE | 2016-06-04 21:07 | PCM.HPMED ---
Subjective Date of Service Jun 04, 2016 Primary Provider: Admitting Physician: Rosalia Gee DO Primary Care Physician: Flaok Amador MD Attending Physician: Rosalia Gee DO Chief Complaint: Phyllis Mcdonnell is a 21-year-old female with past medical history of CVA on ,, GERD, bipolar disorder, MDD, Hernia [facility] due to concern for clogged NG tube. The initial plan was to replace it in that emergency room. In the NG tube was changed however in that process of 40-40% pneumothorax was found that a repeat x-ray, she was needing 5 L of oxygen to saturate and it was felt that the pneumothorax was moderately large. General surgery was consulted and Dr. su discuss situation with her family. Patient is a DNR/DNI family wanted to drive to the hospital and talked to the surgeon a little bit more before deciding a chest tube as it will cause her more pain. At her baseline patient is bedridden, not quite verbally responsive except saying yes or no. During this interview patient is responsive to pain, follows commands somewhat but not all the time. Does open her eyes and looks at people. Foul urine smell was noted in the room. She is being admitted to the red team with the anticipation that family might decide for chest tube. Later in the day Dr. su did put in a chest tube it appears she is resting calmly. Review of Systems: Patient is unable to provide ROS. Allergies Coded Allergies: citalopram (Verified Allergy, Unknown, 05/26/16) paroxetine (Verified Allergy, Unknown, 05/26/16) ciprofloxacin (Verified Adverse Reaction, Mild, diarrhea, 05/26/16) lansoprazole (Verified Adverse Reaction, Mild, intolerance, 05/26/16) Home Medications Please see admission reconciliation. PMH Remarkable for CVA, GERD, bipolar disorder, MDD, had hernia Surgical History Appendectomy, hysterectomy, parathyroidectomy, thyroidectomy, cystoscopy, left ureteral stent, feeding tube Social History Hx Alcohol Use: No Hx Substance Use: No Hx Tobacco Use: No Smoking Status: Never Smoker Living Arrangement: Intermediate Facility Exam Vital Signs Vital Sign - Last Date Time Temp Pulse Resp B/P Pulse Ox O2 Delivery O2 Flow Rate FiO2 06/04/16 20:50 37.3 84 20 176/83 99 Nasal Cannula 1.50 Exam Gen.: Laying in bed neck turned towards the right side. HEENT: Eyes are responsive to light Heart: Regular rate and rhythm, no S3-S4 murmurs Lungs anteriorly negative for crackles or wheezes Abdomen soft, nontender. Normal bowel sounds are present Extremities she is unable to squeeze hands on the left side. Downgoing Babinski 's on the right side. Responsive to pain, responsive to verbal occasionally Lab and Diagnostics Result Diagram: 06/04/16 1310 06/04/16 1310 Assessment & Plan Assessment #1 pneumothorax general surgery's consultation and he is aware managing the chest tube. Assessment #2 dysphagia status post CVA: Feeding tube is inserted. We will give her D5 half normal saline with potassium for fluids as she may not be able to eat for a day or so we will consult nutrition services. Assessment 3: High blood pressure will order hydralazine when necessary Hyperlipidemia: We will continue home medications History of stroke: Continue aspirin, atorvastatin DVT prophylaxis: Heparin subcutaneous IV fluids: D5 half-normal saline with 20 meq potassium 100 mL per hour Diet: Nothing by mouth VTE Prophylaxis: Sub-Q Heparin (Unfractionated) VTE Mechanical Devices: Intermittant Pneumatic CD Resuscitation Status: DNR/DNI:Do Not Resuscitate/Intubate Rosalia Gee DO Jun 04, 2016 21:07
[2016-06-04] MEDS: D5 0.45% NaCl + KCl 20 mEq/L 1,000 ML IV SCH (21:50)
[2016-06-04] MEDS ORDERED: hydrALAZINE 20 mg/mL Inj IV PRN (22:00)
[2016-06-04] MEDS: fentaNYL-PF 50 mCg/mL 2 mL Inj IVPUSH PRN (22:20)
[2016-06-05] MEDS: 0.9% Sodium Chloride 1,000 ML IV SCH ×3 (00:57→20:57)
[2016-06-05] MEDS: Heparin 5,000 Unit/mL Inj SUBQ SCH ×4 (01:30→23:44)
[2016-06-05] MEDS: fentaNYL-PF 50 mCg/mL 2 mL Inj IVPUSH PRN ×2 (01:31→05:17)
[2016-06-05 03:20] VITALS: BP 177/79; PULSE 84; O2SAT 97
[2016-06-05 03:33] VITALS: BP 164/70; PULSE 80
[2016-06-05 05:05] VITALS: BP 169/82; PULSE 73; RESP 20; O2SAT 97
--- NOTE | 2016-06-05 05:57 | NUR ---
ACTIVITY/PAIN/CHEST TUBE Pt has been turned Q2H during shift. Elbow protection pads to bilateral elbows and heels elevated d/t reddened areas. Pt has c/o generalized pain and pain w/ movement. Pt is very soft spoken, difficult to communicate. Pt able to answer 'yes' and 'no' type questions. PRN IV pain medication given, pt was able to rest/sleep more comfortably. Chest tube remains to low wall suction, no bubbles, no change since initial placement. Dressing intact. Small amt of serous drainage in tube closest to insertion site, no drainage in collection chamber. Continue to monitor. Call light in reach. Bed alarm on. Intentional rounding.
[2016-06-05 06:59] LABS: BASOPHILS % (AUTO) 0.2 % (0-3); EOSINOPHILS % (AUTO) 1.1 % (0-5); MONOCYTES % (AUTO) 8.6 % (4-12); Mean Corpuscular Hemoglobin 30.7 pg (27.0-35.0); Mean Corpuscular Volume 94.1 fL (81-100); NEUTROPHILS % (AUTO) 72.3 % (40-74); Platelet Count 281 bil/L (150-400)
--- NOTE | 2016-06-05 08:54 | DRSVH ---
PROCEDURE: X-RAY CHEST ONE VIEW, PORTABLE ([id number]) INDICATIONS: F/U R Ptx TECHNIQUE: One view of the chest was acquired. COMPARISON: [facility], CR, XR CHEST 1VW, 06/04/2016, 16:54. FINDINGS: Surgical changes and devices: Right thoracostomy tube is unchanged. Feeding tube is unchanged. Lungs and pleura: No pleural effusion. Streaky opacities are present at the right lung base which lik andrea represent atelectasis. No pneumothorax visualized. Mediastinum: Mediastinal contours appear normal. Heart size is normal. Bones and chest wall: No suspicious bony lesions. Overlying soft tissues appear unremarkable. IMPRESSION: 1. No appreciable pneumothorax. 2. Right basilar atelectasis. Dictated by: Hue Saucedo M.D. on 06/05/2016 at 8:52 Approved by: Hue Saucedo M.D. on 06/05/2016 at 8:53
[2016-06-05] MEDS: lamoTRIgine 100 mg Tablet PO SCH (09:21)
[2016-06-05] MEDS: Venlafaxine XR 75 mg ER24 Capsule PO SCH (09:21)
--- NOTE | 2016-06-05 10:20 | PCM.PNMED ---
Subjective Date of Service Jun 05, 2016 Subjective - Pt seen and examined this morning. She is alert. Non verbal - No acute events overnight. - Chest tube removed by Surgery this morning. Exam Vital Signs Vital Sign - Last Date Time Temp Pulse Resp B/P Pulse Ox O2 Delivery O2 Flow Rate FiO2 06/05/16 05:05 37.0 73 20 169/82 97 Nasal Cannula 1.50 Intake and Output 06/04/16 06/04/16 06/05/16 Cumulative From/Thru 15:00 23:00 07:00 06/04/16 10:58 - 06/05/16 05:19 Intake Total 571 ml 571 ml Output Total 643 ml 643 ml Balance -72 ml -72 ml Intake Oral 0 ml 0 ml IV Total 571 ml 571 ml Output Urine Total 643 ml 643 ml # Voids 4 4 # Bowel Movements 1 1 Exam Gen.: Laying in bed neck turned towards the right side. HEENT: Eyes are responsive to light. NG tube in place Heart: Regular rate and rhythm, no S3-S4 murmurs Lungs anteriorly negative for crackles or wheezes. Not in acute distress Abdomen soft, nontender. Normal bowel sounds are present. NG tube in place Extremities she is unable to squeeze hands on the left side. Downgoing Babinski 's on the right side. Responsive to pain, responsive to verbal occasionally Neuro: Alert. non verbal. IVs and Medications Medications Reviewed: Medications were reviewed in detail Lab and Diagnostics Result Diagram: 06/05/1662306/05/16623 Assessment & Plan 81-year-old female with past medical history of CVA on 05/26/16, GERD, bipolar disorder, Hernia presenting from long-term due to concern for clogged NG tube. In ER, NG tube was changed however in that process she developed pneumothorax. Chest tube was placed by Surgery. Pneumothorax - Surgery consulted. Chest tube placed yesterday and removed this morning - She is clinically improving dysphagia status post CVA: - Feeding tube in place - on D5 half normal saline with potassium for fluids as she may not be able to eat for a day or so we will consult nutrition services. History of stroke: - on aspirin, Plavix, statins High blood pressure - Well controlled - Home medications resumed. She is on amlodipine 10 mg daily Hyperlipidemia: We will continue home medications DVT prophylaxis: Heparin subcutaneous IV fluids: D5 half-normal saline with 20 meq potassium 100 mL per hour VTE Prophylaxis: Sub-Q Heparin (Unfractionated) VTE Mechanical Devices: Intermittant Pneumatic CD Resuscitation Status: DNR/DNI:Do Not Resuscitate/Intubate Vinny Hyman MD Jun 05, 2016 10:20
[2016-06-05 10:42] VITALS: BP 159/82; PULSE 76; RESP 19; O2SAT 97
--- NOTE | 2016-06-05 10:44 | PCM.PNSURG ---
Subjective Date of Service: Jun 05, 2016 Visit Information: Reason for Visit Pneumothorax R CT placement 06/04/2016 Date of Admission: Jun 04, 2016 at 14:51 Hospital Day # 2 Subjective: No issues overnight Objective Vital Sign- Last 8 Hours Date Time Temp Pulse Resp B/P Pulse Ox O2 Delivery O2 Flow Rate FiO2 06/05/16 05:05 37.0 73 20 169/82 97 Nasal Cannula 1.50 06/05/16 03:33 80 164/70 06/05/16 03:20 84 177/79 97 Nasal Cannula 1.50 Intake and Output- Last 8 Hour 06/05/16 Cumulative From/Thru 07:00 06/04/16 10:58 - 06/05/16 05:19 Intake Total 571 ml 571 ml Output Total 643 ml 643 ml Balance -72 ml -72 ml Intake Oral 0 ml 0 ml IV Total 571 ml 571 ml Output Urine Total 643 ml 643 ml # Voids 4 4 # Bowel Movements 1 1 Chest: CT with no respiratory variation Result Diagram: 06/05/16 0624 06/05/16 0624 Assessment & Plan Impression Doing well Problems: Plan Removed CT Repeat CXR later today Please call with questions Brianne Vann MD Jun 05, 2016 10:44
--- NOTE | 2016-06-05 11:29 | NUR ---
FLORY signed with son via phone. RUDY Land
--- NOTE | 2016-06-05 11:43 | NUR ---
Social Work-initial assessment: Data:See initial assessment. Pt is a 81 y/o female who was admitted on 06/04/16 for pneumothorax per H&P. Pt's insurance is [employer] and PCP is Flako Amador MD. EMR reviewed. Pt's readmission score is 4-high risk. Pt is not able to participate in conversation, RAYMOND placed a call to scotty Monk [phone] to discuss discharge planning, SW role explained. Son Lacho confirm that pt has been at [facility] for the last 2 days for rehab and prior to that was independent at baseline. Pt does not drive and has no HH history. SW discussed DPOA/advanced directive, son confirms they have completed this, SW encouraged a copy to be brought in. Son in agreement for pt to return back to [facility] when ready. Pt has tube feeds. RAYMOND placed a call to Tiera in Admission at [facility] who confirms they are able to accept pt back at discharge with Dr. Chong to follow. RAYMOND placed paperwork in the chart. Phone number and plan written on white board in room. SW will continue to follow. Assessment:Pt who resides at [facility]. Plan:Pt to discharge back to [facility] when medically stable. Paperwork placed in the chart. SW will continue to follow. RUDY Land Addendum: 06/05/16 at 1150 by MOOKIE FRANCO SS Amended: Links added.
--- NOTE | 2016-06-05 11:53 | NUR ---
[facility] can accept pt back with Dr. Chong to follow. RUDY Land
[2016-06-05] MEDS: D5 0.45% NaCl + KCl 20 mEq/L 1,000 ML IV SCH ×2 (12:19→20:53)
--- NOTE | 2016-06-05 14:03 | DRSVH ---
PROCEDURE: X-RAY CHEST ONE VIEW ([id number]) INDICATIONS: R CT removal TECHNIQUE: One view of the chest was acquired. COMPARISON: [facility], CR, XR CHEST 1VW (PORTABLE), 06/05/2016, 7:21. FINDINGS: Surgical changes and devices: The right thoracostomy tube has been removed. Feeding tube is unchanged . Lungs and pleura: No pneumothorax after thoracostomy tube removal. Atelectasis persists at the right lung base. No pleural effusion. Mediastinum: Mediastinal contours appear normal. Heart size is normal. Bones and chest wall: No suspicious bony lesions. There is trace subcutaneous emphysema along the ri ght chest wall which is unchanged from the prior study. IMPRESSION: No pneumothorax after thoracostomy tube removal. Trace subcutaneous emphysema as before. Dictated by: Hue Saucedo M.D. on 06/05/2016 at 14:01 Approved by: Hue Saucedo M.D. on 06/05/2016 at 14:02
[2016-06-05 14:49] VITALS: BP 156/74; PULSE 77; RESP 18; O2SAT 97
[2016-06-05] MEDS ORDERED: Pantoprazole 40 mg ER24 Tablet PO SCH (16:30)
[2016-06-05 20:48] VITALS: BP 124/68; PULSE 71; RESP 17; O2SAT 98
--- NOTE | 2016-06-06 03:52 | NUR ---
Tube feeding Pt tube feeding running on 10ml/hr of Jevity 1.5 with 40mL of flush every 4 hours. Pt is non-verbal. No s/sx of chest pain sob, or obvious signs of distress. VSS, and pt has been afebrile overnight. Bed is in lowest position, bed alarm-on for safety and intentional hourly rounding done. Will continue to monitor.
[2016-06-06 05:05] VITALS: BP 151/71; PULSE 74; RESP 18; O2SAT 97
[2016-06-06] MEDS: D5 0.45% NaCl + KCl 20 mEq/L 1,000 ML IV SCH (05:58)
[2016-06-06] MEDS ORDERED: Pantoprazole 4 mg/mL 10 mL Inj IVPUSH SCH (07:30)
[2016-06-06 07:42] LABS: BASOPHILS % (AUTO) 0.2 % (0-3); EOSINOPHILS % (AUTO) 2.3 % (0-5); MONOCYTES % (AUTO) 8.6 % (4-12); Mean Corpuscular Hemoglobin 30.7 pg (27.0-35.0); Mean Corpuscular Volume 93.9 fL (81-100); NEUTROPHILS % (AUTO) 65.6 % (40-74); Platelet Count 269 bil/L (150-400)
[2016-06-06] MEDS: lamoTRIgine 100 mg Tablet PO SCH (09:22)
[2016-06-06] MEDS: Venlafaxine XR 75 mg ER24 Capsule PO SCH (09:22)
[2016-06-06] MEDS: Heparin 5,000 Unit/mL Inj SUBQ SCH (09:22)
--- NOTE | 2016-06-06 10:25 | NUR ---
Spoke with Katina Posey in admissions at [facility] and they are willing to accept patient today when ready. Updated [employer] Addendum: 06/06/16 at 1054 by ROJELIO HOOD CM Faxed orders to [facility] and arranged S transport for 1330 via [facility]. Updated [employer] and TRAY
--- NOTE | 2016-06-06 10:34 | PCM.DIMED ---
Discharge Instructions Date of Service Jun 06, 2016 Dates of Hospitalization Jun 04, 2016 at 14:51 Discharge Diagnosis Discharge Diagnosis Pneumothorax Test Results Repeat chest x-ray shows small subcutaneous emphysema after chest tube removed Diet Other (tube feeds as previous) Activity No restrictions Call your provider Shortness of breath Patient Instructions Follow-up Provider: Flako Amador MD Follow-up with PCP in: 1 week Reuben Greene MD Jun 06, 2016 10:34
--- NOTE | 2016-06-06 10:39 | PCM.DC.MED ---
Discharge Summary Date of Service Jun 06, 2016 Dates of Hospitalization Date of Hospital Admission Jun 04, 2016 at 14:51 Date of Discharge: Jun 06, 2016 Providers: Admitting Physician: Rosalia Gee DO Primary Care Physician: Flako Amador MD Attending Physician: Rosalia Gee DO Diagnosis at Time of Discharge Diagnosis at Time of Discharge Pneumothorax Consultations Gen. surgery Brief History 81-year-old female came in with not working feeding tube went to have it replaced and in the process was found to have pneumothorax Hospital Course 81-year-old female with past medical history of CVA on 05/26/16, GERD, bipolar disorder, Hernia presenting from [facility] due to concern for clogged NG tube. In ER, NG tube was changed however in that process she developed pneumothorax. Chest tube was placed by Surgery, pneumothorax resolved and it was removed. Her feedings have been resumed and she is stable for discharge to resume prior feeding regimen as she was at her SNF. Pneumothorax - Surgery consulted. Chest tube placed yesterday and removed 06/05 without evidence of recurrence by chest x-ray - She is clinically improving dysphagia status post CVA: - Feeding tube in place, feeding to resume his previously History of stroke: - continue on aspirin, Plavix, statins High blood pressure - Well controlled - Continue Home medications. She is on amlodipine 10 mg daily Hyperlipidemia: We will continue home medications Patient discharging back to SNF today 06/06. Exam Vital Signs (Last) Date Time Temp Pulse Resp B/P Pulse Ox O2 Delivery O2 Flow Rate FiO2 06/06/16 05:05 36.6 74 18 151/71 97 Nasal Cannula 1.50 Test 06/04/16 13:10 06/05/16 06:24 06/06/16 07:25 06/06/16 10:14 Prothrombin Time 11.1sec (8.1-12.5) Prothromb Time International Ratio 1.04ratio Magnesium Level 2.7mg/dL (1.6-2.6) Hold Birch Top Tube Received (Received) Total Bilirubin 0.5mg/dL (0.0-1.2) Aspartate Amino Transf (AST/SGOT) 27U/L (0-50) Alanine Aminotransferase (ALT/SGPT) 25U/L (0-32) Alkaline Phosphatase 71U/L (25-165) Total Protein 6.5g/dL (6.4-8.4) Albumin 3.2g/dL (3.4-5.0) White Blood Count 8.6th/mm3 (3.8-10.1) Red Blood Count 4.11mil/mm3 (3.90-5.20) Hemoglobin 12.6g/dL (12.0-15.6) Hematocrit 38.6% (35.0-46.0) Mean Corpuscular Volume 93.9fL (81-100) Mean Corpuscular Hemoglobin 30.7pg (27.0-35.0) Mean Corpuscular Hemoglobin Concent 32.6% (32.0-37.0) Red Cell Distribution Width 13.9% (12.3-15.4) Platelet Count 269bil/L (150-400) Neutrophils (%) (Auto) 65.6% (40-74) Lymphocytes (%) (Auto) 22.8% (14-46) Monocytes (%) (Auto) 8.6% (4-12) Eosinophils (%) (Auto) 2.3% (0-5) Basophils (%) (Auto) 0.2% (0-3) Sodium Level 139mEq/L (134-144) Potassium Level 4.4mEq/L (3.5-5.2) Chloride Level 106mEq/L (97-108) Carbon Dioxide Level 22mmol/L (18-29) Blood Urea Nitrogen 23mg/dL (8-27) Creatinine 0.42mg/dL (0.57-1.00) Estimat Glomerular Filtration Rate 207mL/min (>59) Glucose Level 128mg/dL (60-99) Calcium Level 7.9mg/dL (8.5-10.1) Discharge Medications Discharge Medications Amlodipine (Amlodipine) 5 Mg Tablet 10 MG PO DAILY Prescribed by: IRA MATHUR MD Aspirin (Aspirin) 81 Mg Tablet 81 MG PO DAILY (Reported) Atorvastatin Calcium (Atorvastatin Calcium) 40 Mg Tablet 40 MG PO DAILY Prescribed by: IRA MATHUR MD Calcium Carbonate/Vitamin D3 (Calcium 500 mg Chewable Tablet) 1 Each Tab.chew 3 EACH PO DAILY (Reported) Cholecalciferol (Vitamin D3) (Vitamin D) 1,000 Unit Capsule 1,000 UNIT PO DAILY (Reported) Clopidogrel (Clopidogrel) 75 Mg Tablet 75 MG PO DAILY Prescribed by: IRA MATHUR MD Estrogens Conjugated (Premarin) 0.625 Mg Tablet 0.625 MG PO DAILY (Reported) Lamotrigine (Lamotrigine) 200 Mg Tablet 200 MG PO DAILY (Reported) Losartan Potassium (Losartan Potassium) 50 Mg Tablet 50 MG PO DAILY (Reported) Multivitamin (Multi Vitamin Daily) 1 Each Tablet 1 EACH PO DAILY (Reported) Pantoprazole DR (Pantoprazole DR) 40 Mg Tablet.dr 40 MG PO BID (Reported) Venlafaxine ER (Venlafaxine ER) 75 Mg Cap.er.24h 75 MG PO BID (Reported) Vitamin E (Dl,Tocopheryl Acet) (Vitamin E) 100 Unit Capsule 400 MG PO DAILY ( Reported) As needed Acetaminophen (Acetaminophen) 325 Mg Capsule 325-650 MG PO Q4H PRN PRN For Pain (Reported) Labetalol (Labetalol) 100 Mg Tablet 100 MG PO BID PRN PRN FOR SYSTOLIC GREATER THAN 160 (Reported) Followup Plan Discharge Diet: Other (tube feeds as previous) Discharge Activity: No restrictions Follow-up Provider: Flako Amador MD Follow-up with PCP in: 1 week Time spent Greater than 30 minutes Reuben Greene MD Jun 06, 2016 10:38
--- NOTE | 2016-06-06 11:11 | NUR ---
Social Work-readiness for discharge: Data:EMR Reviewed. Pt is on day 2 of hospitalization for pneumothorax per H&P. Pt may be ready to discharge later today or tomorrow. Pt has been residing at [facility] and UR specialist confirms that [facility] is ready to accept pt back when medically stable. NG tube in place and [facility] has all the tube feed supplies.Paperwork has been placed in the chart. SW will continue to follow. Assessment:Pt who would benefit from SNF. Plan:Pt to discharge back to [facility] when medically stable. Paperwork has been placed in the chart. SW will continue to follow. RUDY Land
--- NOTE | 2016-06-06 11:16 | NUR ---
Social Work- discharge: Data:EMR Reviewed. Pt is on day 2 of hospitalization for pneumothorax per H&P. Pt is ready to discharge today. Pt has been residing at [facility] and UR specialist confirms that [facility] is ready to accept pt back when medically stable. NG tube in place and [facility] has all the tube feed supplies. UR specialist arranged BLS for 1330. SW left message on son's cell phone and spoke with daughter in law Vita and informed her of discharge. SW explained that SW cannot guarantee that insurance will cover the cost of BLS, daughter in law agreeable to proceed. Daughter in law to updated son. UR specialist faxed order and created packet. RN,UC,pt/family, and [facility] all updated and agreeable to plan. Assessment:Pt who would benefit from SNF. Plan:Pt to discharge back to [facility] today via BLS at 1330.RN,UC,pt/family, and JS all updated and agreeable to plan. RUDY Land
[2016-06-06 13:33] VITALS: BP 136/76; PULSE 71; RESP 18; O2SAT 96
--- NOTE | 2016-06-06 13:48 | NUR ---
Discharge Pt discharged to [facility] via BLS transport, report provided to EMS. Pt left with NG tube, and personal belongings.
== END 2016-06-06 13:52 | DRG 168 ==
LOC: EDBD 10:57 → SED 10:57 → EDUNIT# 10:57 → OBSVTOIN 14:51 → MPC 14:51
PROVIDERS: ADMIT Family Medicine; ATTEND Family Medicine
PROC: 0B9K30Z Drainage of Right Lung with Drainage Device, Percutaneous Approach (ICD-10-PCS; principal; 2016-06-04)
PROC: 0D20XUZ Change Feeding Device in Upper Intestinal Tract, External Approach (ICD-10-PCS; 2016-06-04)
DX: J95.811 Postprocedural pneumothorax (principal); Z79.82 Long term (current) use of aspirin; I69.991 Dysphagia following unspecified cerebrovascular disease; R13.10 Dysphagia, unspecified; E78.5 Hyperlipidemia, unspecified; Z66 Do not resuscitate; R03.0 Elevated blood-pressure reading, without diagnosis of hypertension